=== PATIENT | male | born 1960 | race Caucasian/White ===

== ENCOUNTER → 2017-07-09 | Outpatient (CLI) | payer BC ==
--- NOTE | 2017-07-09 15:13 | XR ---
EXAM TYPE: LUMBAR SPINE X RAY SERIES COMPARISON: NONE HISTORY: Chronic pain TECHNIQUE: 4 views are submitted. FINDINGS: Alignment is anatomic. The pedicles are intact. The transverse processes are intact. There is no s pondylolysis or spondylolisthesis. There is a calcification the left abdomen measuring 2.5 mm. There is multilevel hypertrophic change and degenerative disc disease with most marked findings at L5-S1. No spondylolisthesis. Posterior spurring at L5-S1 likely results in foraminal encroachment and possib le canal stenosis. No alteration in position on flexion and extension views. IMPRESSION: 1. Multilevel degenerative disc disease with stable alignment on flexion and extension views. Severe changes L5-S1..
== END | disposition home or self-care (01) ==
LOC: RADCTMAIN 14:35
PROVIDERS: ATTEND Anesthesiology
DX: M51.16 Intervertebral disc disorders with radiculopathy, lumbar region (principal)
CPT/HCPCS: 72114

== ENCOUNTER → 2017-11-26 | Outpatient (CLI) | payer BC ==
--- NOTE | 2017-11-26 20:38 | MR ---
EXAMINATION TYPE: MR cervical spine wo con DATE OF EXAM: 11/26/2017 COMPARISON: 01/19/2015 HISTORY: Neck pain TECHNIQUE: Multiplanar, multisequence images of the cervical spine were acquired. C2-C3: There is degenerative disc disease with uncovertebral joint hypertrophy greater on the right r esulting in moderate right foraminal encroachment. Facet arthropathy contributes. No disc herniation or canal stenosis. Finding is mildly progressed from prior exam. C3-C4: Degenerative disc disease with central disc bulging or small protrusion appears stable. There is a right lateral disc bulge with [id number] right-sided foraminal encroachment. Facet arthrop athy noted. C4-C5: Degenerative disc disease with a focal central disc herniation abutting the anterior margin of the spinal cord. Stable from the prior exam. Facet arthropathy and bilateral uncovertebral joint hyp ertrophy noted. This results in significant effacement of thecal sac. [id number] right-sided fo raminal encroachment. C5-C6: Degenerative disc disease with retrolisthesis of C5 relative to C6. There is a broad-based paula tral disc herniation greater paracentrally the right resulting in cord compression which is mildly pr ogressed from the previous exam. Uncovertebral joint hypertrophy and facet arthropathy contribute to severe bilateral foraminal encroachment. C6-C7: Severe degenerative disc disease with broad-based central disc protrusion resulting in mild an terior indentation and compression of the spinal cord. Protrusion greater paracentrally the right. Fa cet arthropathy and uncovertebral joint hypertrophy contribute to severe left-sided foraminal encroac hment and moderate to severe right-sided foraminal encroachment. There is central canal stenosis. C7-T1: Degenerative disc disease with facet arthropathy. No disc herniation or canal stenosis. Mild b ilateral foraminal encroachment. Mild central disc bulging noted. Cervical segments are intact. Cervical spinal cord is of normal signal. Craniovertebral junction r elationships are within normal limits. IMPRESSION: 1. Multilevel moderate to severe degenerative disc disease with multilevel disc herniations. Large di sc herniation C5-C6 with retrolisthesis and hypertrophic changes result in severe spinal cord john franklyn and bilateral foraminal encroachment mildly progressed from the prior exam. 2. Central disc herniation C6-C7 and C4-C5 resulting in anterior encroachment upon the spinal cord an d bilateral foraminal encroachment with reduction of the central canal diameter 3. Multilevel foraminal encroachment as discussed above.
== END | disposition home or self-care (01) ==
LOC: RADMRIMAIN 19:37
PROVIDERS: ATTEND Neurological Surgery
DX: M50.221 Other cervical disc displacement at C4-C5 level (principal); M43.12 Spondylolisthesis, cervical region; G95.20 Unspecified cord compression; M46.82 Other specified inflammatory spondylopathies, cervical region
CPT/HCPCS: 72141

== ENCOUNTER → 2017-12-03 | Outpatient (CLI) | payer BC ==
--- NOTE | 2017-12-03 21:50 | MR ---
EXAMINATION TYPE: MR knee RT wo con DATE OF EXAM: 12/03/2017 COMPARISON: NONE HISTORY: Pain TECHNIQUE: Multiplanar, multisequence images of the knee is performed without IV contrast. FINDINGS: MEDIAL MENISCUS: Myxoid degeneration posterior horn medial meniscus. Anterior horn is intact. LATERAL MENISCUS: Anterior and posterior horns are intact without tear. CRUCIATE LIGAMENTS: The anterior and posterior cruciate ligaments are intact and unremarkable. COLLATERAL LIGAMENTS: The medial collateral ligament and lateral collateral ligament complex are inta ct and unremarkable. EXTENSOR MECHANISM: Visualized quadriceps and patellar tendons are intact. EFFUSION: No significant suprapatellar joint effusion. POPLITEAL CYST: No popliteal/beck cyst. TRICOMPARTMENT SPACES: Narrowing patellofemoral joint space with changes of chondromalacia patella. M ild narrowing medial tibiofemoral joint space. CARTILAGE: There is thinning of the patellar cartilage with changes of chondromalacia patella. BONE MARROW SIGNAL: No focal abnormal marrow signal is appreciated. OTHER: Intramedullary tibial katia is in place resulting in the artifact. IMPRESSION: 1. Changes of chondromalacia patella with cartilaginous thinning and subchondral cyst formation. 2. Myxoid degeneration posterior horn medial meniscus.
== END | disposition home or self-care (01) ==
LOC: RADMRIMAIN 19:32
PROVIDERS: ATTEND Orthopaedic Surgery
DX: M22.41 Chondromalacia patellae, right knee (principal); M85.661 Other cyst of bone, right lower leg; M23.321 Other meniscus derangements, posterior horn of medial meniscus, right knee

== ENCOUNTER → 2017-12-22 | Outpatient (CLI) | payer BC | LOC: LABPAT 10:46 | PROVIDERS: ATTEND Orthopaedic Surgery | DX: Z01.812 Encounter for preprocedural laboratory examination (principal) | CPT/HCPCS: 87070 ==

== ENCOUNTER → 2018-03-20 | Outpatient (CLI) | payer BC ==
[2018-03-20 13:50] LABS: Basophils % (A) 1 %; Eosinophils # (A) 0.5 k/uL (0-0.7); Eosinophils % (A) 6 %; HCT 40.5 % (39.0-53.0); HGB 13.3 gm/dL (13.0-17.5); Lymphocytes # (A) 1.6 k/uL (1.0-4.8); Lymphocytes % (A) 19 %; MCH 27.9 pg (25.0-35.0); MCHC 32.8 g/dL (31.0-37.0); Mean Platelet Volume 7.1; Monocytes # (A) 0.6 k/uL (0-1.0); Monocytes % (A) 8 %; Neutrophils # (A) 5.1 k/uL (1.3-7.7); Neutrophils % (A) 64 %; Platelet Count 256 k/uL (150-450); RBC 4.76 m/uL (4.30-5.90); WBC 8.1 k/uL (3.8-10.6)
[2018-03-20 14:03] LABS: Potassium 4.2 mmol/L (3.5-5.1)
== END | disposition home or self-care (01) ==
LOC: LABPAT 12:57
PROVIDERS: ATTEND Orthopaedic Surgery
DX: Z01.812 Encounter for preprocedural laboratory examination (principal); M23.91 Unspecified internal derangement of right knee
CPT/HCPCS: 36415; 80051; 85025

== ENCOUNTER 2018-04-01 08:18 | Day surgery (SDC) | payer BC ==
[2018-03-24 14:22] VITALS: BMI 27.3
--- NOTE | 2018-03-31 14:39 | HP ---
HISTORY AND PHYSICAL DATE OF SURGERY: 04/01/18 Tej Abrams is a 57-year-old patient seen with progressive right knee pain. Treatment options were discussed. He elected to proceed with right knee arthroscopy. Consent was obtained. PAST MEDICAL HISTORY: Hypothyroidism. PAST SURGICAL HISTORY: Left shoulder arthroscopy, left knee arthroscopy, cervical spine fusion. DAILY MEDICATIONS: 1. Ibuprofen. 2. Synthroid. ALLERGIES: BIAXIN. SOCIAL HISTORY: Patient denies tobacco use. PHYSICAL EXAMINATION: Evaluation right knee: Range of motion is negative 2 to 120 degrees. Mild effusion. Tenderness medial joint line, tenderness lateral joint line. Positive medial Dion's. Positive lateral Dion's. Ligaments stable. Hip rotation without pain. Distal neurovascular exam intact. RADIOGRAPHS: Radiographs of the right knee revealed mild to moderate osteoarthritis, evidence for previous tibial nail. An MRI of the right knee revealed abnormal signal throughout the medial meniscus. IMPRESSION: 1. Internal derangement, right knee with meniscal tear versus osteochondral tear. 2. Hypothyroidism. PLAN: Right knee arthroscopy with partial meniscectomy and debridement. MMODL / IJN: [id number] /
[~2018-04-01 08:18] MED LIST: DEXAMETHASONE SOD PHOSPHATE 10 MG/ML 1 ML VIAL IV ONE; LIDOCAINE 1% 20 ML VIAL (10MG/ML) FOR IV START INTRADERMA PRN; MIDAZOLAM 2 MG/2 ML VIAL IV PRN; ONDANSETRON 4 MG/2 ML VIAL IVP ONE; ceFAZolin IN SWFI 2 GM/20 ML SYRINGE IVP ONE; fentaNYL (PF) 50 MCG/ML 2 ML AMP IV PRN
[2018-04-01] MEDS: LACTATED RINGERS 1,000 ML IV SCH ×2 (09:22→09:59)
[2018-04-01] MEDS ORDERED: MIDAZOLAM 2 MG/2 ML VIAL ONE (10:03)
[2018-04-01] MEDS ORDERED: LIDOCAINE 1% INJ 10MG/ML (20 ML MDV) ONE (10:03)
[2018-04-01] MEDS ORDERED: PROPOFOL 10 MG/ML 20 ML VIAL IV ONE (10:03)
[2018-04-01] MEDS ORDERED: ROPIVACAINE 5 MG/ML 30 ML VIAL MISCELLANE ONE (10:03)
[2018-04-01] MEDS ORDERED: SUCCINYLCHOLINE CHLORIDE 100 MG/5 ML SYR IV ONE (10:03)
[2018-04-01] MEDS ORDERED: ePHEDrine SULFATE/0.9% NACL/PF 50 MG/5 ML SYRINGE IV ONE (10:03)
[2018-04-01] MEDS ORDERED: fentaNYL (PF) 50 MCG/ML 2 ML AMP ONE (10:03)
[2018-04-01 11:02] VITALS: TEMP 97.6
--- NOTE | 2018-04-01 11:03 | P.OP ---
Date of Procedure: 04/01/18 Preoperative Diagnosis: Internal derangement right knee Postoperative Diagnosis: 1. Tear medial and lateral meniscus right knee 2. Grade 4 chondromalacia medial femoral condyle right knee 3. Grade 2 chondromalacia patella right knee 4. Reactive synovitis medial, lateral and suprapatellar compartments right knee Procedure(s) Performed: 1. Arthroscopic partial medial and lateral meniscectomy right knee 2. Arthroscopic microfracture medial femoral condyle right knee 3. Arthroscopic chondroplasty medial femoral condyle and patella right knee 4. Arthroscopic partial synovectomy medial, lateral and suprapatellar compartments right knee Anesthesia: JOSE MIGUELA, local Surgeon: Nolan Martinez Estimated Blood Loss (ml): 5 Pathology: none sent Condition: stable Disposition: PACU Indications for Procedure: 57-year-old patient seen with progressive right knee pain. After treatment treatment options discussed, he elected to proceed with arthroscopy. Operative Findings: see description of procedure Description of Procedure: Patient was taken to the operative suite. Patient underwent a general anesthetic by the department of anesthesia. Patient was given preoperative antibiotics. The right lower extremity was placed in a well-padded arthroscopic leg anton. The right leg was prepped and draped in the normal sterile orthopedic fashion. A lateral parapatellar and suprapatellar incision was made. Trochars were inserted. Arthroscopy was initiated. Suprapatellar pouch revealed diffuse thick reactive synovitis. The patellofemoral joint appeared to articulate congruently. There was grade 2 chondromalacia patella with some osteochondral tears present. The scope was guided into the medial gutter. No loose bodies or plica were identified. The scope was then guided into the medial compartment. A medial parapatellar incision was made. Trocar inserted followed by probe. There was a complex tear posterior horn medial meniscus. There was an area of grade 3/4 chondromalacia medial femoral condyle weightbearing surface with osteochondral tears. There was thick reactive synovitis anteriorly. I performed a partial medial meniscectomy down to stable tissue. I performed a chondroplasty of the medial femoral condyle down to stable tissue. I performed a partial synovectomy decompressing the thick reactive size anteriorly. I did note an area of exposed bone medial femoral condyle weightbearing surface. I performed a microfracture penetrating the bone in the area of exposed bone. Good bleeding was noted at the microfracture site. The residual meniscus was stable. There was good decompression of the reactive synovitis. Scope and probe were then guided into the intercondylar notch. Cruciates were identified, probed and found to be stable. The scope and probe were then guided into lateral compartment. There was a complex tear involving the anterior and midbody areas of the lateral meniscus with essentially a bucket-handle component. There were grade 2 chondral malacia changes of lateral femoral condyle with osteochondral tears. There was fairly thick reactive synovitis along the anterior aspect of the lateral compartment. I performed a partial lateral meniscectomy gained down to stable tissue. I performed a partial synovectomy decompressing the thick reactive synovitis along the anterior aspect of lateral compartment. I essentially performed a complete anterior midbody horn meniscectomy laterally. The residual posterior horn was stable. There was good stability about the residual osteochondral surface and good decompression of the synovitis anteriorly. The scope was in guided back into the suprapatellar compartment. I introduced the motorized shaver into the suprapatellar compartment. I debrided some piecemeal fragments of meniscus I encountered. I performed a chondroplasty of the patella down to stable tissue. I performed a partial synovectomy decompressing the thick reactive synovitis and super patellar compartment. Shaver was removed. The residual osteochondral surface was stable. There was good decompression of the synovitis.Instruments were now removed from the joint. The joint was infiltrated with .25% Marcaine. Steri-Strips were applied to the portal sites. Sterile dressings were applied. The patient was placed into a MIKE hose. No tourniquet was utilized. The patient was awakened, transferred to a bed and taken to recovery stable satisfactory condition.
[2018-04-01] MEDS ORDERED: LACTATED RINGERS 1,000 ML IV ONE ×2 (11:10)
[2018-04-01 11:14] VITALS: RESP 16
[2018-04-01] MEDS: HYDROmorphone 0.5 MG/0.5 ML SYRINGE IVP PRN ×3 (11:16→12:07)
[2018-04-01] MEDS ORDERED: KETOROLAC 30 MG/ML 1 ML VIAL IVP ONE (11:43)
[2018-04-01 13:00] VITALS: BP 115/77; PULSE 74
== END 2018-04-01 13:25 | disposition home or self-care (01) ==
LOC: OR 08:18
PROVIDERS: ATTEND Orthopaedic Surgery
DX: S83.231A Complex tear of medial meniscus, current injury, right knee, initial encounter (principal); S83.271A Complex tear of lateral meniscus, current injury, right knee, initial encounter; S83.251A Bucket-handle tear of lateral meniscus, current injury, right knee, initial encounter; X58.XXXA Exposure to other specified factors, initial encounter; M94.261 Chondromalacia, right knee; M22.41 Chondromalacia patellae, right knee; M65.861 Other synovitis and tenosynovitis, right lower leg; E03.9 Hypothyroidism, unspecified; Z79.1 Long term (current) use of non-steroidal anti-inflammatories (NSAID); Z79.890 Hormone replacement therapy; Z88.1 Allergy status to other antibiotic agents
CPT/HCPCS: 29880; 29879; J2250; J1100; J2405; J2001; J3010; J1885; J2795; J0330; J2704; J1170; J0690

== ENCOUNTER → 2018-05-27 | Outpatient (CLI) | payer BC ==
--- NOTE | 2018-05-28 17:30 | MR ---
EXAMINATION TYPE: MR knee RT wo con DATE OF EXAM: 05/27/2018 COMPARISON: Prior right knee MRI 12/03/2017 HISTORY: Pain in right knee TECHNIQUE: Multiplanar, multisequence imaging of the right knee is performed without IV contrast. FINDINGS: MEDIAL MENISCUS: Abnormal increased signal present within the posterior horn of the medial meniscus, the meniscus appears somewhat truncated, abnormal signal is diffuse, communication with the articular surface is not seen with certainty. LATERAL MENISCUS: Anterior horn of the lateral meniscus is not seen. Posterior horn of the lateral me niscus shows possible meniscal cyst posteriorly, findings could be indicative of tear, anterior horn may be displaced laterally CRUCIATE LIGAMENTS: The anterior and posterior cruciate ligaments are intact and unremarkable. COLLATERAL LIGAMENTS: The medial collateral ligament and lateral collateral ligament complex are inta ct and unremarkable. EXTENSOR MECHANISM: Visualized quadriceps and patellar tendons are intact. EFFUSION: No significant suprapatellar joint effusion. POPLITEAL CYST: No popliteal/beck cyst. TRICOMPARTMENT SPACES: Joint space loss is present tricompartmentally CARTILAGE: Grade IV chondromalacia posterior patella. Grade 3 to grade IV chondromalacia medial deyanira rtment and likely lateral compartment BONE MARROW SIGNAL: Reactive marrow signal edema present within the lateral compartment especially at the lateral femoral condyle. OTHER: Susceptibility artifact present at the level of the proximal tibia anteriorly. IMPRESSION: Postoperative changes and osteoarthritis. Extensive reactive marrow signal change especially in the l ateral femoral condyle. Additional findings above.
== END | disposition home or self-care (01) ==
LOC: RADMRIMAIN 15:01
PROVIDERS: ATTEND Orthopaedic Surgery
DX: M17.12 Unilateral primary osteoarthritis, left knee (principal); M22.41 Chondromalacia patellae, right knee; Z98.890 Other specified postprocedural states

== ENCOUNTER → 2018-07-03 | Outpatient (CLI) | payer BC ==
--- NOTE | 2018-07-03 17:50 | XR ---
EXAMINATION TYPE: XR lumbar spine with bend/flex DATE OF EXAM: 07/03/2018 COMPARISON: 07/09/2017 HISTORY: Low back pain TECHNIQUE: 7 views FINDINGS: The lumbar vertebra have normal alignment. There is hypertrophic spur formation throughout the lumbar spine. There is narrowing at L5-S1 disc space with vacuum disc. Sacroiliac joints are inta ct. There is no evidence for fracture. IMPRESSION: Multilevel spondylotic changes. No fracture seen. Left renal calculus noted. No change co mpared to old exam.
== END | disposition home or self-care (01) ==
LOC: RADMRIMAIN 16:27
PROVIDERS: ATTEND Neurological Surgery
DX: M47.816 Spondylosis without myelopathy or radiculopathy, lumbar region (principal)
CPT/HCPCS: 72114

== ENCOUNTER → 2018-07-20 | Outpatient (CLI) | payer BC ==
--- NOTE | 2018-07-21 07:55 | MR ---
EXAMINATION TYPE: MR lumbar spine wo con DATE OF EXAM: 07/20/2018 COMPARISON: Prior MRI lumbar spine July 28, 2017. Most recent lumbar spine x-ray July 03, 2018 HISTORY: Spinal stenosis lumbar region with neurogenic claudication per order. Back pain and weakness into bilateral legs per patient. History of prior surgery 1991. TECHNIQUE: Multiplanar, multisequence imaging of the lumbar spine is performed without IV contrast. FINDINGS: I will use same counting system as utilized on most recent prior MRI. Sagittal images of th e lumbar spine show vertebral body heights to remain satisfactory. There is slight grade 1 retrolisth esis of L3 on L4 and L4 and S1 redemonstrated felt stable. Multilevel disc desiccation is redemonstra randolph. There is mild disc space narrowing L2-L3 level redemonstrated. There is mild to moderate disc sp river narrowing L3-L4 level redemonstrated. Fairly advanced disc space narrowing with heterogeneous Mod ic type II endplate changes L4-S1 level is again seen. Posterior disc herniations at these levels are redemonstrated on sagittal images. The conus medullaris is normal in position and signal ending mid L1 level. Mild to moderate multilevel anterior spurring is again seen. Axial images at the T12-L1 level redemonstrate mild facet degenerative changes bilaterally but spinal canal is preserved and bilateral neural foramina are patent. Axial images at the L1-L2 level shows mild facet degenerative changes bilaterally mildly effacing pos terior lateral thecal sac. There is mild broad disc bulge minimally effacing the anterior thecal sac. Bilateral neural foramina are patent. No significant change from prior. Axial images at the L2-L3 level show moderate facet degenerative changes and ligament flavum hypertro phy effacing posterior lateral thecal sac. There is moderate to severe broad based posterior disc pro trusion effacing anterior thecal sac. Most prominent spinal canal stenosis is at this level axial sam ge 18 and appears slightly more prominent from prior MRI. There is moderate bilateral anterior inferi or neural foraminal narrowing. Some encroachment along the anterior inferior extraforaminal component of exiting both L2 nerves is felt present similar to prior. Axial images at the L3-L4 level shows mild to moderate facet degenerative changes bilaterally. There is moderate broad disc bulge mildly effacing anterior thecal sac. There is mild to moderate bilateral neural foraminal narrowing seen. Axial images at the L4 S1 level show left-sided laminectomy defect redemonstrated. There is mild to m oderate facet degenerative changes bilaterally. There is right paracentral disc protrusion effacing a nterior thecal sac. There is mild to moderate bilateral neural foraminal narrowing redemonstrated. No suspicious incidental retroperitoneal findings are seen. IMPRESSION: Multilevel degenerative changes in lumbar spine as detailed above with most prominent fin dings mid to lower lumbar levels. Most prominent spinal canal stenosis is noted L2-L3 level.
== END ==
LOC: RADMRIMAIN 21:19
PROVIDERS: ATTEND Neurological Surgery
DX: M48.061 Spinal stenosis, lumbar region without neurogenic claudication (principal); M99.74 Connective tissue and disc stenosis of intervertebral foramina of sacral region; M51.27 Other intervertebral disc displacement, lumbosacral region; M47.817 Spondylosis without myelopathy or radiculopathy, lumbosacral region
CPT/HCPCS: 72148

== ENCOUNTER → 2018-09-15 | Outpatient (CLI) | payer BC | LOC: LABPAT 15:53 | PROVIDERS: ATTEND Orthopaedic Surgery | DX: Z01.812 Encounter for preprocedural laboratory examination (principal) | CPT/HCPCS: 87070 ==

== ENCOUNTER 2018-10-05 08:25 | Day surgery (SDC) | payer BC ==
[2018-09-30 14:37] VITALS: BMI 27.6
--- NOTE | 2018-10-04 14:18 | HP ---
HISTORY AND PHYSICAL REASON FOR ADMISSION: Surgery scheduled for 10/05/2018 HISTORY OF PRESENT ILLNESS: John Abrams is a 58-year-old patient seen with symptomatic left knee osteoarthritis. We discussed treatment options. He elected to proceed with left total knee arthroplasty. Consent was obtained. Clearance was provided by Dr. Valdez. PAST MEDICAL HISTORY: Hypothyroidism. PAST SURGICAL HISTORY: Left shoulder arthroscopy, left knee arthroscopy, intramedullary nailing, right tibia; removal, irritating hardware, right tibia; cervical fusion. MEDICATIONS: Synthroid. ALLERGIES: BIAXIN. SOCIAL HISTORY: Denies tobacco use. PHYSICAL EXAMINATION: Evaluation of the left knee is range of motion is 0 to 130 degrees. Tenderness medial joint line. Crepitus medial patellofemoral compartments range of motion. Pain with patellofemoral compression. Ligaments stable. Hip rotation without pain. Distal neurovascular exam intact. RADIOGRAPHS: Radiographs of the left knee reveal severe medial and moderate patellofemoral compartment osteoarthritis. IMPRESSION: 1. Left knee osteoarthritis. 2. Hypothyroidism. PLAN: Left total knee arthroplasty. Surgery scheduled for 10/05/2018. MMODL / IJN: [id number] /
[~2018-10-05 08:25] MED LIST changes: +ACETAMINOPHEN TAB 500 MG TAB PO ONE; -DEXAMETHASONE SOD PHOSPHATE 10 MG/ML 1 ML VIAL IV ONE; +HYDROmorphone 0.5 MG/0.5 ML SYRINGE IVP PRN; +LACTATED RINGERS 1,000 ML IV SCH; +MELOXICAM 7.5 MG TAB PO ONE; -MIDAZOLAM 2 MG/2 ML VIAL IV PRN; +TRANEXAMIC ACID 1,000 MG in SODIUM CHLORIDE 0.9% 100 ML IVPB ONE; -fentaNYL (PF) 50 MCG/ML 2 ML AMP IV PRN
[2018-10-05] MEDS ORDERED: DEXAMETHASONE SOD PHOSPHATE 10 MG/ML 1 ML VIAL IV ONE (09:24)
[2018-10-05] MEDS ORDERED: MIDAZOLAM 2 MG/2 ML VIAL IVP ONE (09:35)
[2018-10-05] MEDS ORDERED: ROPIVACAINE 246.25 MG, EPINEPHrine 0.5 MG, KETOROLAC 30 MG, cloNIDine HCL/PF 80 MCG, WA... MISCELLANE ONE ×10 (09:56→10:31)
[2018-10-05] MEDS ORDERED: SUCCINYLCHOLINE CHLORIDE 100 MG/5 ML SYR IV ONE (09:59)
[2018-10-05] MEDS ORDERED: MIDAZOLAM 2 MG/2 ML VIAL ONE (09:59)
[2018-10-05] MEDS ORDERED: fentaNYL (PF) 50 MCG/ML 2 ML AMP ONE (09:59)
[2018-10-05] MEDS ORDERED: DEXAMETHASONE SOD PHOS (MDV) 100 MG/10 ML VIAL ONE (09:59)
[2018-10-05] MEDS ORDERED: PHENYLEPHRINE-0.9% NACL SYG 1 MG/10 ML SYRINGE ONE (09:59)
[2018-10-05] MEDS ORDERED: PROPOFOL 10 MG/ML 20 ML VIAL IV ONE (09:59)
[2018-10-05] MEDS ORDERED: TRANEXAMIC ACID 1,000 MG/10 ML VIAL ONE (09:59)
[2018-10-05] MEDS ORDERED: SODIUM CHLORIDE 0.9% 100 ML BAG ONE (09:59)
[2018-10-05] MEDS ORDERED: LIDOCAINE 1% INJ 10MG/ML (20 ML MDV) ONE (09:59)
[2018-10-05] MEDS ORDERED: ceFAZolin 3,000 MG in SODIUM CHLORIDE 0.9% IRRIGATIO 3,000 ML IRRIGATION ONE (10:36)
[2018-10-05] MEDS ORDERED: ROPIVACAINE 1,100 MG, SODIUM CHLORIDE 0.9% 500 ML 330 ML MISCELLANE PRN ×2 (11:46)
[2018-10-05] MEDS ORDERED: ONDANSETRON 4 MG/2 ML VIAL IVP PRN (12:00)
[2018-10-05] MEDS ORDERED: HYDROmorphone 0.5 MG/0.5 ML SYRINGE IVP PRN ×2 (12:00)
[2018-10-05] MEDS ORDERED: HYDROcodone/APAP 5-325MG 1 EACH TAB PO PRN ×2 (12:00)
[2018-10-05] MEDS ORDERED: LACTATED RINGERS 1,000 ML IV SCH (12:00)
[2018-10-05] MEDS ORDERED: HYDROmorphone 1 MG/ML 1 ML SYRINGE IVP PRN (12:00)
[2018-10-05] MEDS ORDERED: NALOXONE 0.4 MG/ML 1 ML VIAL IV PRN (12:00)
--- NOTE | 2018-10-05 12:00 | P.OP ---
Date of Procedure: 10/05/18 Preoperative Diagnosis: Left knee osteoarthritis Postoperative Diagnosis: Left knee osteoarthritis Procedure(s) Performed: Left total knee arthroplasty Implants: 1. Microport evolution size 6 left CS/CR cemented femur 2. Microport evolution size 6 left cemented tibial baseplate 3. Microport evolution MP CS size 6 left 10 mm polyethylene tibial insert 4. Microport advance 38 mm all polyethylene cemented patella Anesthesia: GETA, regional (Adductor canal catheter), local Surgeon: Nolan Martinez Spinner Hand #1: Ezra Forrester Estimated Blood Loss (ml): 50 Pathology: other (Bone) Condition: stable Disposition: PACU Indications for Procedure: 58-year-old patient seen with symptomatic left knee osteoarthritis. After treatment options discussed, he elected to proceed with total knee arthroplasty Operative Findings: See description of procedure Description of Procedure: Patient was taken to the operative suite after having an adductor canal catheter placed by the department of anesthesia. Patient underwent a general anesthetic by the department of anesthesia. Patient was given preoperative IV intake antibiotics and TXA. A well-padded tourniquet was placed about the left lower extremity. The lower extremity was then prepped and draped in the normal sterile orthopedic fashion. The extremity was elevated, a tourniquet was insufflated to 300. A standard anterior incision was made sharply through skin. Dissection was taken down through the subcutaneous soft tissues down to the extensor mechanism. A medial arthrotomy was performed, patella was everted and knee was flexed. There was advanced osteoarthritis noted. I introduced my distal intramedullary femoral drill. I then introduced the distal femoral cutting jig. Pascual VALDEZ secured the cutting jig with 2 pins. I held retractors in position while Pascual VALDEZ performed the distal femoral resection through the guide area we now removed her distal femoral cutting guide. We now placed our 4-in-1 femoral cutting block and positioned and it was secured with 2 pins by Pascual VALDEZ while I held the block in position. The distal femoral finishing was now completed. A proximal tibial cutting guide was positioned. I held the guide in the appropriate position with both hands well Pascual VALDEZ inserted stabilizing pins into the guide. Proximal tibial cut was made. We now placed a trial femoral component into position, along with an appropriate size tibial tray and insert. We now took the knee through range of motion and had full extension good flexion and good overall soft tissue balance noted. The patella was everted and stabilized with 2 towel clips held by Pascual VALDEZ while I performed a flush with patellar quad tendon utilizing a fresh sawblade. We templated the patella, appropriate drill holes were made. An appropriate trial patella was positioned, knee was taken through full range of motion with the patella tracking very nicely. The trial patella was removed. Drill holes were made through the femoral component. All trial components were removed after marking off the appropriate rotation of the tibia. Retractors were now positioned along the proximal tibia. An appropriate keel punch was made with the appropriate size tibial guide by myself on Pascual VALDEZ assisted by holding retractors. At this point appropriate size implants were chosen and opened. The joint was irrigated copiously with pulse lavage mechanical irrigation. The posterior capsule was infiltrated with local analgesic. The wound was irrigated with pulse lavage mechanical irrigation. We mixed antibiotic methylmethacrylate. We placed the knee into flexion. We placed multiple retractors assisted by Pascual VALDEZ to expose the proximal tibia. Once the methyl methacrylate was ready, the tibial component was cemented into place removing any excess methylmethacrylate form by both myself and Pascual VALDEZ. The femoral component was cemented into place removing the removing any excess methylmethacrylate performed by both myself and Pascual VALDEZ. We then inserted the appropriate size polyethylene tibial insert. We made sure that it was locked into position. We took the knee into full extension, and then back in a flexion making sure we had removed any excess methylmethacrylate. The patellar component was then cemented down and secured with clamp. Excess methylmethacrylate removed. We kept the knee in full extension, patellar clamp in position until methylmethacrylate had hardened. Once it had hardened the patellar clamp was removed. The knee was taken through full range of motion. The patella tracked nicely. There was good soft tissue balancing. The tourniquet was now released. Additional hemostasis was achieved via electrocautery. A second gram of TXA was given. The wound again was irrigated with pulse lavage mechanical irrigation. The superficial soft tissues were infiltrated local analgesic. The extensor mechanism was repaired with Vicryl. We checked the repair with range of motion and it was stable. The subcutaneous soft tissues were repaired with Vicryl in layers. The skin was approximated with pernio/Dermabond. Sterile dressings were applied followed by loose web roll and Mello bandage. The patient was transferred to a bed, and taken to recovery in stable and satisfactory condition. Pascual VALDEZ assisted with this complex procedure.
[2018-10-05 12:22] VITALS: TEMP 98.1
[2018-10-05] MEDS ORDERED: LACTATED RINGERS 1,000 ML IV ONE (13:05)
[2018-10-05] MEDS ORDERED: KETOROLAC 30 MG/ML 1 ML VIAL IVP ONE (13:06)
[2018-10-05] MEDS ORDERED: HYDROmorphone 1 MG/ML 1 ML SYRINGE IVP ONE (13:07)
--- NOTE | 2018-10-05 13:32 | XR ---
EXAMINATION TYPE: XR knee limited LT DATE OF EXAM: 10/05/2018 CLINICAL HISTORY: Postoperative evaluation Two views of the left knee are submitted. Identified are changes of total knee arthroplasty with fem oral and tibial components appearing well seated. Postsurgical soft tissue changes are noted. Align ment is anatomic.
[2018-10-05 14:14] VITALS: RESP 16
--- NOTE | 2018-10-05 15:25 | P.ONQ ---
Anesthesiology Proc Note - PNB - Peripheral Nerve Block Performed Left Adductor Canal Infusion Time Out Performed: Yes Procedure Start Time: 09:36 Procedure Stop Time: :46 Indication: Acute Post-Operative Pain, Requested by physician Sedation Type: Sedate with meaningful contact maintained Preparation: Sterile Dressing Position: Supine Catheter: Indwelling Needle Types: On-Q Needle Size: 100mm (4") Technique: Ultrasound Injectate: 0.5% Ropivacaine (see comment for volume) (ropi .5% 20cc) Blood Aspirated: No Pain Paresthesia on Injection Noted: No Resistance on Injection: Normal Events: Uneventful and Well Tolerated
[2018-10-05 15:37] VITALS: BP 128/87; PULSE 80
[2018-10-05] MEDS ORDERED: ceFAZolin IN SWFI 2 GM/20 ML SYRINGE IVP ONE (18:01)
== END 2018-10-05 16:31 | disposition home health service (06) ==
LOC: OR 08:25
PROVIDERS: ATTEND Orthopaedic Surgery
DX: M17.12 Unilateral primary osteoarthritis, left knee (principal); E03.9 Hypothyroidism, unspecified; Z79.890 Hormone replacement therapy; Z88.1 Allergy status to other antibiotic agents
CPT/HCPCS: 97161; 88300; 73560; 27447; C1776; C1713; C1772; J2250; J1100 ×2; J2405; J0690 ×2; J2001; J3010; J1885; J1170 ×2; J2795; J2370; J0330; J2704

== ENCOUNTER → 2019-10-06 | Outpatient (CLI) | payer BC ==
--- NOTE | 2019-10-06 21:30 | MR ---
EXAMINATION TYPE: MR lumbar spine wo con DATE OF EXAM: 10/06/2019 COMPARISON: 07/20/2018 HISTORY: LBP, lt leg numbness, hx surgery CONTRAST: 0 mL intravenous Gadavist. TECHNIQUE: Multiplanar, multisequence images of the lumbar spine were acquired. For purposes of this examination the numbering system utilized and L4 S1 level as previously describe d FINDINGS: L4 S1: There is minimal retrolisthesis present. Endplate changes with Modic type I degenerative morris es are present. Disc uncovering is present with mild anterior thecal sac compression. This is unchang ed. Facet hypertrophy is present. There may be some compression of the exiting left nerve root. Sever e bilateral foraminal stenosis is present. L3-L4: Minimal disc bulging is present. Facet hypertrophy is present slightly greater on the left. Fo ramen are patent. L2-L3: Left paracentral moderate-sized disc bulge is present with mild to moderate intrathecal sac co mpression. Slightly more inferior some milder right paracentral subligamentous disc extension may be present. Significant AP spinal canal stenosis is not present. There is some facet hypertrophy with po sterior lateral thecal sac compression. Some mild lateral canal narrowing may be present. The degree of spinal canal stenosis present previously appears diminished over the interval. L1-L2: No significant disc bulge or disc herniation. No spinal canal stenosis. No foraminal stenosi s. T12-L1: No significant disc bulge or disc herniation. No spinal canal stenosis. No foraminal stenos is. IMPRESSION: 1. Previous spinal canal stenosis at the level labeled L3-4 appears diminished. Remaining findings ar e stable over the interval from 07/20/2018.
== END | disposition home or self-care (01) ==
LOC: RADMRIMAIN 20:25
PROVIDERS: ATTEND Orthopaedic Surgery
DX: M48.061 Spinal stenosis, lumbar region without neurogenic claudication (principal); M51.26 Other intervertebral disc displacement, lumbar region; M47.816 Spondylosis without myelopathy or radiculopathy, lumbar region; M43.16 Spondylolisthesis, lumbar region; G89.29 Other chronic pain; M96.1 Postlaminectomy syndrome, not elsewhere classified
CPT/HCPCS: 72148

== ENCOUNTER → 2020-07-12 | Outpatient (CLI) | payer MEDICARE, BC ==
--- NOTE | 2020-07-12 22:23 | MR ---
EXAMINATION TYPE: MR shoulder LT wo con DATE OF EXAM: 07/12/2020 COMPARISON: MR 08/03/2012. Radiographs 05/19/2020. HISTORY: PAIN IN LEFT SHOULDER, SX 2012 TECHNIQUE: Multiplanar, multisequence imaging of the left shoulder is performed without contrast. FINDINGS: Rotator Cuff: Prior post surgical changes related to rotator cuff repair with suture anchors in the h umeral head present. There is moderate heterogeneity of the rotator cuff tendons. There is articular surface irregularity of the supraspinatus tendon may and anterior fibers, compatible with low to mode rate grade partial thickness tear. No evidence of full-thickness rotator cuff tear. Acromioclavicular Joint: Mild osteoarthritis Glenohumeral Joint: Moderate osteoarthritis with small joint effusion. Labrum: Moderate degeneration of the glenoid labrum. Biceps Tendon: The long head of biceps is in normal location within bicipital groove. Bone marrow signal: No focal abnormal marrow signal is appreciated. Other: Trace fluid is seen in the subacromial-subdeltoid bursa. IMPRESSION: Prior rotator cuff repair without evidence of full-thickness tear. Findings compatible with low to moderate grade articular surface partial thickness tear of the supras pinatus tendon. Mild subacromial-subdeltoid bursitis.
== END | disposition home or self-care (01) ==
LOC: RADMRIMAIN 20:51
PROVIDERS: ATTEND Orthopaedic Surgery
DX: M75.52 Bursitis of left shoulder (principal); Z98.890 Other specified postprocedural states

== ENCOUNTER → 2020-09-26 | Outpatient (CLI) | payer MEDICARE, BC ==
[2020-09-26 19:31] LABS: Basophils # (A) 0.07 X 10*3/uL (0.00-0.10); Basophils % (A) 0.8 %; Eosinophils % (A) 5.5 %; HCT 43.9 % (39.6-50.0); Lymphocytes # (A) 1.74 X 10*3/uL (0.90-5.00); Lymphocytes % (A) 19.2 %; MCH 28.9 pg (27.0-32.0); MCHC 31.9 g/dL (32.0-37.0); MCV 90.5 fL (80.0-97.0); Monocytes % (A) 9.9 %; Neutrophils # (A) 5.77 X 10*3/uL (1.80-7.70); Neutrophils % (A) 63.8 %; Platelet Count 226 X 10*3/uL (140-440); RBC 4.85 X 10*6/uL (4.40-5.60); RDW 13.2 % (11.5-14.5); WBC 9.05 X 10*3/uL (4.50-10.00)
[2020-09-26 19:46] LABS: Anion Gap 9.5 mmol/L (4.00-12.00); Carbon Dioxide 25.5 mmol/L (21.6-31.8); Potassium 4.4 mmol/L (3.5-5.5)
[2020-09-26 22:57] LABS: INR 0.88 (0.90-1.11); Prothrombin Time 9.7 sec (9.9-11.9)
== END | disposition home or self-care (01) ==
LOC: LABWHC1 14:00
PROVIDERS: ATTEND Orthopaedic Surgery
DX: Z01.818 Encounter for other preprocedural examination (principal); M16.12 Unilateral primary osteoarthritis, left hip; Z01.812 Encounter for preprocedural laboratory examination
CPT/HCPCS: 36415; 80051; 85025; 85610; 87070; 93005

== ENCOUNTER 2020-10-02 06:28 | Day surgery (SDC) | payer MEDICARE, BC ==
[2020-09-28 16:13] VITALS: BMI 27.4
--- NOTE | 2020-10-01 17:14 | HP ---
HISTORY AND PHYSICAL REASON FOR ADMISSION: Surgery scheduled 10/02/2020 HISTORY OF PRESENT ILLNESS: Tej Abrams is a 60-year-old gentleman seen with symptomatic left hip osteoarthritis. We discussed treatment options. He elected to proceed with direct anterior left total hip arthroplasty. Consent regarding the procedure was obtained. PAST MEDICAL HISTORY: Hypothyroidism. PAST SURGICAL HISTORY: Shoulder arthroscopy, knee arthroscopy, total knee arthroplasty. MEDICATIONS: Synthroid, ibuprofen. ALLERGIES: BIAXIN. SOCIAL HISTORY: Denies tobacco use. PHYSICAL EXAMINATION: Evaluation of the left hip: Range of motion is severely limited with severe pain. There is diffuse tenderness about the hip girdle. Hip impingement sign is negative. Straight leg raise is negative. His distal neurovascular exam is intact. RADIOGRAPHS: Radiographs of the hip reveal severe osteoarthritic changes. IMPRESSION: 1. Left hip osteoarthritis. 2. Hypothyroidism. PLAN: Direct anterior left total hip arthroplasty. Surgery 10/02/2020. MMODL / IJN: [id number] /
[~2020-10-02 06:28] MED LIST changes: -ACETAMINOPHEN TAB 500 MG TAB PO ONE; +ACETAMINOPHEN TAB 500 MG TAB PO PRN; +DEXAMETHASONE SOD PHOSPHATE 4 MG/ML 1 ML VIAL IV ONE; -LACTATED RINGERS 1,000 ML IV SCH; -LIDOCAINE 1% 20 ML VIAL (10MG/ML) FOR IV START INTRADERMA PRN; -MELOXICAM 7.5 MG TAB PO ONE; +MELOXICAM 7.5 MG TAB PO PRN; +ROPIVACAINE/EPI/CLONIDINE/KET 50 ML SYRINGE MISCELLANE PRN; -TRANEXAMIC ACID 1,000 MG in SODIUM CHLORIDE 0.9% 100 ML IVPB ONE; +TRANEXAMIC ACID 1,000 MG in SODIUM CHLORIDE 0.9% 100 ML IVPB PRN; -ceFAZolin IN SWFI 2 GM/20 ML SYRINGE IVP ONE
[2020-10-02 06:59] VITALS: RESP 16
[2020-10-02] MEDS: LACTATED RINGERS 1,000 ML IV SCH ×2 (07:12→12:11)
[2020-10-02] MEDS ORDERED: TRANEXAMIC ACID 1,000 MG/10 ML VIAL ONE (07:24)
[2020-10-02] MEDS ORDERED: SUCCINYLCHOLINE CHLORIDE 100 MG/5 ML SYR IV ONE (07:24)
[2020-10-02] MEDS ORDERED: LIDOCAINE 1% INJ 10MG/ML (20 ML MDV) ONE (07:24)
[2020-10-02] MEDS ORDERED: MIDAZOLAM 2 MG/2 ML VIAL ONE (07:24)
[2020-10-02] MEDS ORDERED: PROPOFOL 10 MG/ML 20 ML VIAL IV ONE (07:24)
[2020-10-02] MEDS ORDERED: SODIUM CHLORIDE 0.9% 100 ML BAG ONE (07:24)
[2020-10-02] MEDS ORDERED: KETAMINE 10 MG/ML 20 ML VIAL ONE (07:24)
[2020-10-02] MEDS ORDERED: fentaNYL (PF) 50 MCG/ML 2 ML AMP ONE (07:24)
[2020-10-02] MEDS ORDERED: ceFAZolin 1,000 MG in SODIUM CHLORIDE 0.9% 1,000 ML IRRIGATION ONE (08:07)
--- NOTE | 2020-10-02 09:10 | FL ---
Fluoroscopy History: TOTAL LEFT HIP TOTAL LEFT HIP. 17 SEC FLUORO TIME. WITH DR VILLAGRAN.
[2020-10-02] MEDS ORDERED: HYDROmorphone 0.2 MG/1 ML SYRINGE IVP PRN (09:23)
[2020-10-02] MEDS ORDERED: HYDROcodone/APAP 7.5-325MG 1 EACH TAB PO PRN (09:23)
[2020-10-02] MEDS ORDERED: HYDROmorphone 1 MG/ML 1 ML SYRINGE IVP PRN (09:23)
[2020-10-02] MEDS ORDERED: HYDROcodone/APAP 5-325MG 1 EACH TAB PO PRN (09:23)
[2020-10-02] MEDS ORDERED: NALOXONE 0.4 MG/ML 1 ML VIAL IV PRN (09:23)
[2020-10-02] MEDS ORDERED: ONDANSETRON 4 MG/2 ML VIAL IVP PRN (09:23)
[2020-10-02] MEDS ORDERED: HYDROmorphone 0.5 MG/0.5 ML SYRINGE IVP PRN (09:23)
--- NOTE | 2020-10-02 09:23 | P.OP ---
Date of Procedure: 10/02/20 Preoperative Diagnosis: Left hip osteoarthritis Postoperative Diagnosis: Left hip osteoarthritis Procedure(s) Performed: Direct anterior left total hip arthroplasty Implants: 1. Depuy Corail KA standard collar size 12 press-fit femoral stem 2. Depuy pinnacle 58 mm press-fit acetabular shell 3. Depuy pinnacle polyethylene acetabular liner neutral 36 mm ID 58 mm OD 4. Biolox delta ceramic femoral head +1.5 36 mm Anesthesia: JOSE MIGUELA, local Surgeon: Nolan Martinez Material Planner #1: Ezra Forrester Estimated Blood Loss (ml): 125 Pathology: other (femoral head) Condition: stable Disposition: PACU Indications for Procedure: 60-year-old gentleman seen with progressive left hip pain. After treatment options were discussed with him, he elected to proceed with total hip arthroplasty. Operative Findings: see description of procedure Description of Procedure: The patient was taken to the operative suite. Patient underwent a general anesthetic by the department of anesthesia. Patient was then transferred to the Girdler table. Patient was given preoperative IV antibiotics and TXA. Both lower extremities were placed in standard leg spars. The hip was then prepped and draped in the normal sterile orthopedic fashion. A standard anterior incision was made beginning 3 cm lateral and 1 cm distal to the ASIS extending 10 cm. Dissection was then carried down through the subcutaneous soft tissues down to the fascia overlying the tensor fascia louie. An incision was now made through the fascia. Careful dissection was taken down exposing the tensor fascia louie muscle. A Cobra retractor was now placed along the medial femoral neck and a second one along the lateral femoral neck. The venous circumflex vessels were now identified, cauterized and clipped. We identified the anterior hip capsule. An incision was made through the hip capsule along the lateral border. I performed a partial anterior capsulectomy. Retractors were now placed around the femoral neck itself. A femoral neck cut was now made with a sagittal saw. It was completed with an osteotome at the lateral neck area. The femoral head was now removed without difficulty. The extremity was now rotated to 45 of external rotation. It was locked in position. Residual labrum was now debrided out. Serial reaming was performed of the acetabulum while Pascual VALDEZ assisted holding an anterior retractor for exposure. Once we reached the appropriate size and a trial was position and fit nicely. The appropriate size was now chosen opened and made available. It was introduced into the acetabulum without difficulty. The C-arm/fluoroscopy was now brought into the operative field. We made sure we had a true AP pelvic view. We now under direct C- arm/fluoroscopy introduced into the acetabular component with appropriate version and inclination. I held the cup in appropriate position well Pascual VALDEZ used a mallet to seat the acetabular component. I noted the component now to be well seated and stable. Acetabular cup introduce her was removed. The C-arm was pulled back. An appropriate liner was introduced and clicked into position. It was felt to be stable. At this point retractors were removed. The extremity was now placed into 120 external rotation with no traction. The leg was now dropped to the ground and adducted. Appropriate retractors were now positioned along the proximal femur. We also placed our femoral look into position. Additional capsular releasing was performed to gain access to the proximal femur. We now used a box osteotome. A canal finder was now utilized. Serial broaching was now performed with the assistance of Pascual VALDEZ tapping the broaches down with a mallet while held the broach in appropriate rotation and position. This was done until we reached the appropriate size with good overall rotational stability. Appropriate calcar planing was performed. A trial head/neck was placed into position. The hip was now reduced. The C- arm/fluoroscopy was brought back into the operative field. We obtained an AP pelvis ascertain leg length alignment, it appeared adequate as well as the trial components appeared adequate position. The C-arm/fluoroscopy was pulled back. Retractors were repositioned and the hip was dislocated. The leg was again taken down to the ground and adducted. Appropriate retractors were repositioned as well as the femoral hook. All trial components were removed. The femoral implant was opened along with the femoral head. The femoral implant was introduced on the appropriate handle into our pre-broached area. I held the component position well Pascual VALDEZ used a mallet to seat the femoral component. The femoral component was now noted to be well seated and stable.. The femoral head was introduced with good positioning and fixation noted. Retractors were now removed. The hip was now reduced. There appeared be good positioning of the hip confirmed on intraoperative fluoroscopy. Spot films were obtained to document this. A second gram of TXA was given. The deep and superficial soft tissues were infiltrated with local analgesic. Bipolar cautery had been utilized intermittently through the procedure for hemostasis. The wound was irrigated copiously with pulse lavage mechanical irrigation. The fascia was repaired with Vicryl suture. The subcutaneous soft tissues were repaired in layers with Vicryl suture. The skin was approximated with pernio/Dermabond. Sterile dressings were applied. Patient was then awakened, transferred to a bed and taken to recovery in stable condition. Pascual VALDEZ assisted with the complex procedure.
[2020-10-02 09:30] VITALS: TEMP 97.8
[2020-10-02] MEDS: LACTATED RINGERS 1,000 ML IV ONE ×2 (09:59→10:12)
[2020-10-02 12:18] VITALS: BP 112/70
[2020-10-02 12:49] VITALS: PULSE 78
== END 2020-10-02 14:14 | disposition home health service (06) ==
LOC: OR 06:28
PROVIDERS: ATTEND Orthopaedic Surgery
DX: M16.12 Unilateral primary osteoarthritis, left hip (principal); E03.9 Hypothyroidism, unspecified; Z96.652 Presence of left artificial knee joint; Z90.49 Acquired absence of other specified parts of digestive tract; Z98.890 Other specified postprocedural states; Z79.1 Long term (current) use of non-steroidal anti-inflammatories (NSAID); Z79.890 Hormone replacement therapy; Z88.1 Allergy status to other antibiotic agents
CPT/HCPCS: 97110; 97161; 86900; 86901; 86850; 88300; 87070; 87205; 87075; 87102; 73501; 27130; C1776; J2250; J1100; J0690 ×2; J2405; J2001; J3010; J0330; J2704; 87116; 87206

== ENCOUNTER 2021-08-29 07:05 | Day surgery (SDC) | payer MEDICARE, BC ==
[2021-08-23 13:20] VITALS: BMI 27.6
--- NOTE | 2021-08-27 15:09 | P.HPOR ---
History of Present Illness H&P Date: 08/27/21 Chief Complaint: Right thumb CMC arthritis Age: 60 year Height: 5'11" Weight: 195 lbs BMI: 27.20 kg/m2 Subjective: This is a 60 year old male that presents today for follow up evaluation regarding right thumb CMC arthritic pain that been worsening for the last 1 year. Patient reports pain with gripping, grasping and pinching type of movements. He had an injection 2 months ago into the thumb CMC joint and noticed significant relief of his symptoms. He has noticed over the last several weeks that the injection has worn off. It is continuously bothering him and interfering with daily activities. Physical Examination: RUE: AIN/PIN/Radial/Ulnar/Median motor intact. Radial/Ulnar/Median SILT. 2+/4 Radial/Ulnar pulses palpated. Positive thumb CMC grind. Negative Finkelsteins. Wrist F/U 80/65. Dorsal metacarpal bossing and index/middle finger CMC joints. Negative finger extension test. Imaging: X-Rays of the right thumb demonstrate moderate to advanced arthritic changes at the thumb CMC joint. Prominent dorsal metacarpal bossing at the index/middle finger CMC Impression: 1.) Right thumb CMC arthritis Plan: Diagnosis and treatment options were discussed with the patient. He has failed conservative treatment and states he wishes to proceed with surgical intervention. Risks and benefit of surgery including bleeding, infection, damage to surrounding tissue, need for further surgery were discussed and the patient wished to go forward with surgery. We will have him obtain pre-op medical clearance for a right thumb CMC tendon transfer arthroplasty in the near future. The patient was agreeable with this plan of action. -Charles France DO Orthopedic Hand/Upper Extremity Surgeon Past Medical History Past Medical History: Osteoarthritis (OA), Thyroid Disorder Additional Past Medical History / Comment(s): hx spinal stenosis History of Any Multi-Drug Resistant Organisms: MRSA Date of last positivie culture/infection: 2008 MDRO Source:: sinus Past Surgical History: Back Surgery, Cholecystectomy, Hernia Repair, Joint Replacement, Orthopedic Surgery Additional Past Surgical History / Comment(s): marcelina shoulder rotator cuff, marcelina shoulder decompression, rt shoulder bone spur, , marcelina knee arthroscopy, katia/plate rt lower leg & then removed, toe joint replacement rt great toe x2, sinus surgery x 3, left knee replacement, neck fusion, laminectomy, left hip replacement Past Anesthesia/Blood Transfusion Reactions: Postoperative Nausea & Vomiting (PONV) Smoking Status: Never smoker - Past Family History Mother Family Medical History: Cancer Additional Family Medical History / Comment(s): lung Medications and Allergies Home Medications Medication Instructions Recorded Confirmed Type Levothyroxine Sodium [Synthroid] 175 mcg PO DAILY 07/31/15 08/23/21 History Ibuprofen [Motrin] 800 mg PO Q8H PRN 09/28/20 08/23/21 History Allergies Allergy/AdvReac Type Severity Reaction Status Date / Time clarithromycin [From Biaxin] Allergy Rash/Hives Verified 08/23/21 13:12 Physical Examination Osteopathic Statement: *. No significant issues noted on an osteopathic struc tural exam other than those noted in the History and Physical/Consult.
[2021-08-29] MEDS ORDERED: LIDOCAINE 1% (10MG/ML) FOR IV START INTRADERMA ONE (08:00)
[2021-08-29] MEDS ORDERED: ONDANSETRON 4 MG/2 ML VIAL ONE (08:04)
[2021-08-29] MEDS ORDERED: LACTATED RINGERS 1,000 ML IV ONE (08:12)
[2021-08-29] MEDS ORDERED: DEXAMETHASONE SOD PHOSPHATE 4 MG/ML 1 ML VIAL IVP ONE (08:13)
[2021-08-29] MEDS ORDERED: MIDAZOLAM 2 MG/2 ML VIAL IVP ONE (08:19)
[2021-08-29] MEDS ORDERED: fentaNYL (PF) 50 MCG/ML 2 ML AMP IVP ONE (08:19)
[2021-08-29] MEDS ORDERED: SODIUM CHLORIDE 0.9% (PF) 10 ML VIAL ONE (08:45)
[2021-08-29] MEDS ORDERED: MIDAZOLAM 2 MG/2 ML VIAL ONE (08:45)
[2021-08-29] MEDS ORDERED: LIDOCAINE 1% INJ 10MG/ML (20 ML MDV) ONE (08:45)
[2021-08-29] MEDS ORDERED: ePHEDrine 50 MG/ML 1 ML AMP ONE (08:45)
[2021-08-29] MEDS ORDERED: PHENYLEPHRINE-0.9% NACL SYG 1,000 MCG/10 ML SYRINGE ONE (08:45)
[2021-08-29] MEDS ORDERED: ROPIVACAINE 5 MG/ML 30 ML VIAL ONE (08:45)
[2021-08-29] MEDS ORDERED: diphenhydrAMINE 50 MG/ML 1 ML VIAL ONE (08:45)
[2021-08-29] MEDS ORDERED: PROPOFOL 10 MG/ML 20 ML VIAL IV ONE (08:45)
[2021-08-29] MEDS ORDERED: KETOROLAC 15 MG/ML 1 ML VIAL ONE (08:45)
--- NOTE | 2021-08-29 09:15 | P.ANPRN ---
Procedure Note - Anesthesia - Nerve Block Performed Right Axillary Single Time Out Performed: Yes (0819) Date of Procedure: 08/29/21 Procedure Start Time: :20 Procedure Stop Time: :24 Location of Patient: PreOp Indication: Acute Post-Operative Pain, Requested by Surgeon Specifically requested for management of pain by DrJosselyn: Charles France Sedation Type: Sedate with meaningful contact maintained Preparation: Sterile Prep Position: Supine Catheter: None Needle Types: Pajunk Needle Gauge: 21 Ultrasound used to visualize needle placement: Yes Ultrasound used to observe medication spread: Yes Injectate: 0.5% Ropivacaine (see comment for volume) (7.5 cc + 2.5 cc nacl pf x4 each nerve. Msklcut, ulnar, radial median) Blood Aspirated: No Pain Paresthesia on Injection Noted: No Resistance on Injection: Normal Image Stored and Saved: Yes Events: Uneventful and Well Tolerated
[2021-08-29 10:39] VITALS: RESP 16; TEMP 96.8
[2021-08-29 11:32] VITALS: BP 114/71; PULSE 69
--- NOTE | 2021-08-29 17:59 | P.OP ---
Date of Procedure: 08/29/21 Preoperative Diagnosis: Right thumb CMC arthritis, severe. Postoperative Diagnosis: Same Procedure(s) Performed: Right thumb CMC tendon transfer arthroplasty with trapezium carpectomy. Anesthesia: PRERNA, regional Surgeon: Charles France Estimated Blood Loss (ml): 5 Pathology: none sent Condition: stable Disposition: PACU Operative Findings: This is a 61 year old male with a history of severe right thumb CMC arthritis that has failed conservative treatment. Risks and benefits of surgery were discussed with the patient including bleeding, damage to surrounding tissue, infection, need for further surgery as well as risks of anesthesia including pulmonary embolism and even and the patient wished to proceed with surgical intervention. The patients was seen in the pre-operative area by myself. Consent and H&P were completed and updated. The correct extremity was marked in the pre-operative area by myself and all other questions were answered. Patient received a upper extremity nerve block by the department of anesthesia. He then was brought to the operating room by the department of anesthesia. They remained on the portable stretcher and a rolling hand table was brought to the side of the operative extremity. The patient was then drifted off to sleep by the department of anesthesia. A nonsterile tourniquet was then applied to the operative extremity and the left upper extremity was then prepped and draped in normal sterile fashion. Pre-operative time out was performed indicating the correct patient, procedure and laterality. All in the room agreed. Pre-operative antibiotics were given prior to skin incision. The operative extremity was the exsanguinated with an esmarch bandage and the tourniquet was inflated to 250mmHg. Longitudinal incision was made over the right thumb CMC joint with a 15 blade scalpel. Blunt dissection was taken down to subcutaneous tissues with littler scissors taking care to preserve the branches of the superficial radial nerve. Dorsal radial artery was identified proximally in the incision and protected throughout the procedure. Scalpel was then made to incise the thumb CMC joint creating full thickness flaps off of the proximal metacarpal base and trapezium, this plane was further developed with a periosteal elevator. Elevator was then utilized to identify the thumb CMC joint and scaphotrapezial joint. Rongeur was then used to excise the trapezium in a piecemeal fashion. After trapeziectomy was performed FCR tendon was identified at the floor of the bed where the trapezium previously was located and the dorsal base of the thumb metacarpal was drilled with a 2.0 drill bit followed by a 3.5 drill bit. Rongeur was used to make a small groove at the dorsal base of metacarpal. Attention was then drawn to the volar wrist. Incision was made over FCR tendon distally and proximally at the level of the musculotendinous junction. FCR sheath was then opened and widened with a small hemostat. 2-0 Ethibond was then used to rodriguez the FCR tendon in half and the ulnar half of FCR tendon was harvested and sharply dissected by passing the 2-0 ethibond through the proximal incision and then sharply cutting the proximal portion of the tendon. The ulnar half of the FCR tendon was then passed through the FCR sheath and separation from the radial half of the tendon was carried all the way down it's insertion at the index metacarpal base. Loop was made with #2 suture through previously made drill holes and the FCR tendon was passed through the drill hole at the base of the first metacarpal and tensioned appropriately. 4-0 Ethibond was then used to suture the FCR tendon to itself in a figure of 8 fashion, this was repeated twice. 90 degree curved hemostat was then used to wrap the FCR tendon around itself and secured with multiple 4-0 ethibond figure of 8 stitches. The wound was then irrigated. Capsular closure was performed with 4-0 monocryl. Skin was closed with several interrupted 4-0 monocryl sutures followed by a running subcuticular stitch. Sterile dressing consisting of mastisol and steri strips followed by 4x4s cast padding, and a thumb spica plaster splint was applied. Tourniquet was let down and the hand had brisk cap refill and normal perfusion immediately. The patient was then woken by the department of anesthesia and transferred to PACU in stable condition. Charles France D.O. Orthopedic Hand/Upper Extremity Surgeon
== END 2021-08-29 12:08 | disposition home or self-care (01) ==
LOC: OR 07:05
PROVIDERS: ATTEND Orthopaedic Surgery Hand Surgery
DX: M18.11 Unilateral primary osteoarthritis of first carpometacarpal joint, right hand (principal); E07.9 Disorder of thyroid, unspecified; M48.00 Spinal stenosis, site unspecified; Z86.14 Personal history of Methicillin resistant Staphylococcus aureus infection; Z79.890 Hormone replacement therapy; Z88.1 Allergy status to other antibiotic agents; Z98.890 Other specified postprocedural states; Z90.49 Acquired absence of other specified parts of digestive tract; Z96.652 Presence of left artificial knee joint; Z96.642 Presence of left artificial hip joint; Z98.1 Arthrodesis status; Z80.1 Family history of malignant neoplasm of trachea, bronchus and lung
CPT/HCPCS: 25447; 25310; 93005; 64417; 76942; J2250; J1200; J1100; J0690; J2405; J2001; J3010; J2795; J1885; J2370; J2704; 64415

== ENCOUNTER → 2022-01-04 | Outpatient (CLI) | payer MEDICARE, BC ==
--- NOTE | 2022-01-05 01:12 | MR ---
EXAMINATION TYPE: MR lumbar spine wo con DATE OF EXAM: 01/04/2022 COMPARISON: None HISTORY: Low back pain that radiates into left hip and thigh causing numbness for 6 weeks. Multiplanar multiecho imaging of the lumbar spine without contrast. There is mild degenerative disc space narrowing in the lumbar spine. Normal alignment. There is posterior disc bulging from L3 to S1. There is some L3-4 bony spinal steno sis due to facet arthropathy and disc bulging. There is no lumbar paraspinal mass. No compression fra cture. No evidence of focal bone destruction. IMPRESSION: Spondylotic changes and L3-4 bony spinal stenosis. Multilevel mild disc bulging. No fracture.
== END | disposition home or self-care (01) ==
LOC: RADMRIMAIN 21:22
DX: M48.062 Spinal stenosis, lumbar region with neurogenic claudication (principal)
CPT/HCPCS: 72148

== ENCOUNTER → 2022-08-20 | Outpatient (CLI) | payer MEDICARE, BC | END | disposition home or self-care (01) | LOC: LABPAT 14:59 | PROVIDERS: ATTEND Orthopaedic Surgery | DX: Z01.812 Encounter for preprocedural laboratory examination (principal); Z22.322 Carrier or suspected carrier of Methicillin resistant Staphylococcus aureus; M17.11 Unilateral primary osteoarthritis, right knee | CPT/HCPCS: 87070 ==

== ENCOUNTER 2022-09-23 06:01 | Day surgery (SDC) | payer BC, MEDICARE ==
[2022-09-18 13:32] VITALS: BMI 27.1
[~2022-09-23 06:01] MED LIST changes: -DEXAMETHASONE SOD PHOSPHATE 4 MG/ML 1 ML VIAL IV ONE; -HYDROmorphone 0.5 MG/0.5 ML SYRINGE IVP PRN; -ONDANSETRON 4 MG/2 ML VIAL IVP ONE; -ROPIVACAINE/EPI/CLONIDINE/KET 50 ML SYRINGE MISCELLANE PRN; -TRANEXAMIC ACID 1,000 MG in SODIUM CHLORIDE 0.9% 100 ML IVPB PRN; +TRANEXAMIC ACID IN NACL,ISO-OS 1,000 MG in SALINE 1 100ML.BAG IVPB PRN
[2022-09-23] MEDS ORDERED: DEXAMETHASONE SOD PHOSPHATE 4 MG/ML 1 ML VIAL IV ONE (06:46)
[2022-09-23] MEDS ORDERED: LIDOCAINE 1% (10MG/ML) FOR IV START INTRADERMA PRN (06:46)
[2022-09-23] MEDS ORDERED: MIDAZOLAM 2 MG/2 ML VIAL IV PRN (06:46)
[2022-09-23] MEDS ORDERED: LACTATED RINGERS 1,000 ML IV SCH (06:46)
[2022-09-23] MEDS ORDERED: ONDANSETRON 4 MG/2 ML VIAL IVP ONE (06:46)
[2022-09-23] MEDS ORDERED: DEXAMETHASONE SOD PHOSPHATE 4 MG/ML 1 ML VIAL IVP ONE (07:00)
[2022-09-23] MEDS ORDERED: fentaNYL (PF) 50 MCG/1 ML VIAL IVP ONE (07:16)
[2022-09-23] MEDS ORDERED: MIDAZOLAM 2 MG/2 ML VIAL IVP ONE (07:16)
[2022-09-23 07:37] VITALS: RESP 16; TEMP 97.5
[2022-09-23] MEDS ORDERED: SODIUM CHLORIDE 0.9% (PF) 10 ML VIAL ONE (07:37)
[2022-09-23] MEDS ORDERED: SUCCINYLCHOLINE CHLORIDE 200 MG/10 ML VIAL IV ONE (07:37)
[2022-09-23] MEDS ORDERED: PROPOFOL 10 MG/ML 20 ML VIAL IV ONE (07:37)
[2022-09-23] MEDS ORDERED: ROPIVACAINE 5 MG/ML 30 ML VIAL ONE (07:37)
[2022-09-23] MEDS ORDERED: WATER FOR INJECTION, STERILE 10 ML VIAL IV ONE (07:37)
[2022-09-23] MEDS ORDERED: TRANEXAMIC ACID IN NACL,ISO-OS 1,000 MG/100 ML BAG ONE (07:37)
[2022-09-23] MEDS ORDERED: ePHEDrine 50 MG/ML 1 ML VIAL ONE (07:37)
[2022-09-23] MEDS ORDERED: fentaNYL (PF) 50 MCG/ML 2 ML AMP ONE (07:37)
[2022-09-23] MEDS ORDERED: LIDOCAINE 2% INJ 20 MG/ML (2 ML VIAL) ONE (07:37)
[2022-09-23] MEDS ORDERED: HYDROmorphone (PF) 1 MG/ML ONE (07:37)
--- NOTE | 2022-09-23 07:37 | HP ---
HISTORY AND PHYSICAL DATE OF SURGERY: 09/23/2022. HISTORY OF PRESENT ILLNESS: Tej Abrams is a 62-year-old gentleman seen with progressive symptomatic right knee osteoarthritis. We discussed options for treatment. He elected to proceed with right total knee arthroplasty. Consent was obtained. Medical clearance was provided by Dr. Valdez. PAST MEDICAL HISTORY: Hypothyroidism, gastroesophageal reflux disease. PAST SURGICAL HISTORY: Shoulder arthroscopy, knee arthroscopy, left total knee arthroplasty, removal of hardware, spine surgery. DAILY MEDICATIONS: 1. Synthroid. 2. Ibuprofen. 3. Gabapentin. 4. Mobic. ALLERGIES: Biaxin. SOCIAL HISTORY: Denies tobacco use. PHYSICAL EVALUATION OF THE RIGHT KNEE: His range of motion is negative to 125. There is a mild effusion. Crepitus, medial patellofemoral compartments with range of motion. Some pain with patellofemoral compression. Ligaments stable. Hip rotation without pain. Distal neurovascular exam is intact. RADIOGRAPHS: Right knee radiographs revealed severe osteoarthritic changes. IMPRESSION: 1. Right knee osteoarthritis. 2. Hypothyroidism. PLAN: Right total knee arthroplasty. MMODL / IJN: [id number] /
[2022-09-23] MEDS ORDERED: LACTATED RINGERS 1,000 ML IV ONE ×4 (07:42→09:23)
[2022-09-23] MEDS ORDERED: ceFAZolin 1,000 MG in SODIUM CHLORIDE 0.9% 1,000 ML IRRIGATION ONE (08:22)
[2022-09-23] MEDS ORDERED: ROPIVACAINE 1,100 MG, SODIUM CHLORIDE 0.9% 500 ML 330 ML, EMPTY PAIN BALL 1 EACH MISCELLANE PRN ×2 (08:24)
--- NOTE | 2022-09-23 08:27 | P.ANPRN ---
Procedure Note - Anesthesia - Nerve Block Performed Right Adductor Canal Infusion Time Out Performed: Yes (0715) Date of Procedure: 09/23/22 Location of Patient: PreOp Indication: Acute Post-Operative Pain, Requested by Surgeon Specifically requested for management of pain by DrJosselyn: Nolan Martinez Sedation Type: Sedate with meaningful contact maintained Preparation: Sterile Prep, Sterile Dressing Position: Supine Catheter: Indwelling Needle Types: Pajunk Needle Gauge: 18 Ultrasound used to visualize needle placement: Yes Ultrasound used to observe medication spread: Yes Injectate: 0.5% Ropivacaine (see comment for volume) (20cc + saline 10 cc) Blood Aspirated: No Pain Paresthesia on Injection Noted: No Resistance on Injection: Normal Image Stored and Saved: Yes Events: Uneventful and Well Tolerated Right iPack Single Time Out Performed: Yes Date of Procedure: 09/23/22 Location of Patient: PreOp Indication: Acute Post-Operative Pain, Requested by Surgeon Specifically requested for management of pain by DrJosselyn: Nolan Martinez Sedation Type: Sedate with meaningful contact maintained Preparation: Sterile Prep Position: Left Lateral Catheter: None Needle Types: Pajunk Needle Gauge: 21 Ultrasound used to visualize needle placement: Yes Ultrasound used to observe medication spread: Yes Injectate: 0.5% Ropivacaine (see comment for volume) (20 cc + 10 cc saline) Blood Aspirated: No Pain Paresthesia on Injection Noted: No Image Stored and Saved: Yes Events: Uneventful and Well Tolerated
[2022-09-23] MEDS ORDERED: NALOXONE 0.4 MG/ML 1 ML VIAL IV PRN (09:23)
[2022-09-23] MEDS ORDERED: ONDANSETRON 4 MG/2 ML VIAL IVP PRN (09:23)
[2022-09-23] MEDS ORDERED: HYDROcodone/APAP 7.5-325MG 1 EACH TAB PO PRN (09:23)
[2022-09-23] MEDS ORDERED: HYDROmorphone 1 MG/ML 1 ML SYRINGE IVP PRN (09:23)
[2022-09-23] MEDS ORDERED: HYDROcodone/APAP 5-325MG 1 EACH TAB PO PRN (09:23)
[2022-09-23] MEDS ORDERED: HYDROmorphone 0.5 MG/0.5 ML SYRINGE IVP PRN ×2 (09:23)
--- NOTE | 2022-09-23 09:23 | P.OP ---
Date of Procedure: 09/23/22 Preoperative Diagnosis: Right knee osteoarthritis Postoperative Diagnosis: Right knee osteoarthritis Procedure(s) Performed: Right total knee arthroplasty Implants: 1. Depuy attune size 8 cruciate retaining right cemented femur 2. Depuy attune size 7 fixed-bearing cemented tibial baseplate 3. Depuy attune size 8 fixed bearing cruciate retaining 5 mm polyethylene tibial insert 4. Depuy attune 41 mm all polyethylene cemented patella Anesthesia: GETA, regional (Adductor canal catheter) Surgeon: Nolan Martinez Supervisor Press Room #1: Ezra Forrester Estimated Blood Loss (ml): 50 Pathology: other (Bone) Condition: stable Disposition: PACU Indications for Procedure: 62-year-old patient seen with symptomatic right knee osteoarthritis. After treatment options were discussed, he elected to proceed with total knee arthroplasty Operative Findings: See description of procedure Description of Procedure: Patient was taken to the operative suite after having an adductor canal catheter placed by the department of anesthesia. Patient underwent a general anesthetic by the department of anesthesia. Patient was given preoperative IV intake antibiotics and TXA. A well-padded tourniquet was placed about the right lower extremity. The lower extremity was then prepped and draped in the normal sterile orthopedic fashion. The extremity was elevated, a tourniquet was insufflated to 300. A standard anterior incision was made sharply through skin. Dissection was taken down through the subcutaneous soft tissues down to the extensor mechanism. A medial arthrotomy was performed, patella was everted and knee was flexed. There was advanced osteoarthritis noted. I introduced my distal intramedullary femoral drill. I then introduced the distal femoral cutting jig. Pascual VALDEZ secured the cutting jig with 2 pins. I held retractors in position while Pascual VALDEZ performed the distal femoral resection through the guide area we now removed her distal femoral cutting guide. We now placed our 4-in-1 femoral cutting block and positioned and it was secured with 2 pins by Pascual VALDEZ while I held the block in position. The distal femoral finishing was now completed. A proximal tibial cutting guide was positioned. I held the guide in the appropriate position with both hands well Pascual VALDEZ inserted stabilizing pins into the guide. Proximal tibial cut was made. We now placed a trial femoral component into position, along with an appropriate size tibial tray and insert. We now took the knee through range of motion and had full extension good flexion and good overall soft tissue balance noted. The patella was everted and stabilized with 2 towel clips held by Pascual VALDEZ while I performed a flush with patellar quad tendon utilizing a fresh sawblade. We templated the patella, appropriate drill holes were made. An appropriate trial patella was positioned, knee was taken through full range of motion with the patella tracking very nicely. The trial patella was removed. Drill holes were made through the femoral component. All trial components were removed after marking off the appropriate rotation of the tibia. Retractors were now positioned along the proximal tibia. An appropriate keel punch was made with the appropriate size tibial guide by myself on Pascual VALDEZ assisted by holding retractors. At this point appropriate size implants were chosen and opened. The joint was irrigated copiously with pulse lavage mechanical irrigation. The wound was irrigated with pulse lavage mechanical irrigation. We mixed antibiotic methylmethacrylate. We placed the knee into flexion. We placed multiple retractors assisted by Pascual VALDEZ to expose the proximal tibia. Once the methyl methacrylate was ready, the tibial component was cemented into place removing any excess methylmethacrylate form by both myself and Pascual VALDEZ. The femoral component was cemented into place removing the removing any excess methylmethacrylate performed by both myself and Pascual VALDEZ. We then inserted the appropriate size polyethylene tibial insert. We made sure that it was locked into position. We took the knee into full extension, and then back in a flexion making sure we had removed any excess methylmethacrylate. The patellar component was then cemented down and secured with clamp. Excess methylmethacrylate removed. We kept the knee in full extension, patellar clamp in position until methylmethacrylate had hardened. Once it had hardened the patellar clamp was removed. The knee was taken through full range of motion. The patella tracked nicely. There was good soft tissue balancing. The tourniquet was now released. Additional hemostasis was achieved via electrocautery. A second gram of TXA was given. The wound again was irrigated with pulse lavage mechanical irrigation. The extensor mechanism was repaired with Ethibond suture. We checked the repair with range of motion and it was stable. The subcutaneous soft tissues were repaired with Vicryl in layers. The skin was approximated with pernio/Dermabond. Sterile dressings were applied followed by loose web roll and Mello bandage. The patient was fernandes sferred to a bed, and taken to recovery in stable and satisfactory condition. Pascual VALDEZ assisted with this complex procedure.
[2022-09-23] MEDS: HYDROmorphone 0.5 MG/0.5 ML SYRINGE IVP PRN ×2 (10:07→10:19)
--- NOTE | 2022-09-23 10:26 | XR ---
EXAMINATION TYPE: XR knee limited RT DATE OF EXAM: 09/23/2022 CLINICAL HISTORY: Right knee pain and arthritis status post total knee replacement. TECHNIQUE: Portable AP and crosstable lateral views of the right knee are obtained immediately posto peratively. COMPARISON: Outside right knee x-ray July 16, 2022 FINDINGS: Metallic hardware from total right knee arthroplasty is seen and appears satisfactory in a lignment and position. There is evidence of recent surgery with diffuse subcutaneous gas and soft ti ssue swelling noted. Broad-based ossific projection posterior proximal tibial diaphysis could reflect osteochondroma is unchanged from outside x-ray. IMPRESSION: METALLIC HARDWARE FROM TOTAL RIGHT KNEE ARTHROPLASTY IS SATISFACTORY IN ALIGNMENT.
[2022-09-23 13:39] VITALS: BP 135/85; PULSE 83
== END 2022-09-23 14:32 | disposition home health service (06) ==
LOC: OR 06:01
PROVIDERS: ATTEND Orthopaedic Surgery
DX: M17.11 Unilateral primary osteoarthritis, right knee (principal); E03.9 Hypothyroidism, unspecified; K21.9 Gastro-esophageal reflux disease without esophagitis; Z98.890 Other specified postprocedural states; Z79.899 Other long term (current) drug therapy
CPT/HCPCS: 97530; 97161; 64999; 64448; 76942; 88300; 73560; 27447; C1776; C1713 ×2; C1751; J2250; J0330; J1100; J0690 ×2; J2405; J3010 ×2; J1170 ×2; J2795; J2704; J2001

== ENCOUNTER → 2023-04-21 | Outpatient (CLI) | payer MEDICARE ==
--- NOTE | 2023-04-21 23:57 | MR ---
MRI CERVICAL SPINE: CLINICAL HISTORY: Neck Pain. Stiff neck with pain on bending on and off for years causing pain or wea kness into both arms. History of prior surgery 2018. TECHNIQUE: Multiplanar, multisequence imaging of the cervical spine is performed without and with IV contrast, 9 cc of gadolinium was given intravenously. COMPARISON: MRI cervical spine 2014. FINDINGS: Sagittal images of the cervical spine show the craniocervical junction to remain within nor mal limits. The cervical and upper thoracic spinal cord is now normal in course, caliber, and signal . Vertebral alignment is anatomic and improved after interval surgery from 2014 MRI. There is artifa ct from metallic disc material and/or endplate changes at C4-C5 through the C6-C7 level on current MR I. The vertebral body heights remain normal. Disc heights are preserved above and below surgical leve ls. The bone marrow signal intensity is within normal limits. No abnormal postcontrast enhancement i s seen. Axial images at C2-C3 level shows broad-based right paracentral/foraminal disc protrusion effacing th e anterior thecal sac along with uncovertebral facet degenerative changes causing mild to moderate ri ght-sided neural foraminal narrowing. Left-sided neural foramen is patent. No significant change from prior MRI. Axial images at C3-C4 level shows central disc protrusion effacing anterior thecal sac along with rig ht foraminal disc protrusion component causing asymmetric [id number] right-sided neural foramin al narrowing. No significant change from prior MRI. Axial images at C4-C5 level shows artifact from surgical change. Bilateral neural foramina remained p atent. Spinal canal is preserved. Axial images at C5-C6 level show improved alignment after surgery. There is artifact from surgical ch kinjal. There is mild bilateral neural foraminal narrowing due to facet arthropathy. Spinal canal gross ly preserved on sagittal images. Axial images at C6-C7 level show artifact from surgical change. There is uncal vertebral facet arthro meka causing persistent moderate to severe bilateral neural foraminal narrowing. Spinal canal grossl y preserved on sagittal images. Axial images at C7-T1 level appear within normal limits. IMPRESSION: Interval surgical change to the mid to lower cervical spine with improved alignment and i mproved findings at these levels. Stable multilevel degenerative changes in the upper cervical spine.
== END | disposition home or self-care (01) ==
LOC: RADMRIMAIN 20:45
PROVIDERS: ATTEND Orthopaedic Surgery
DX: M48.062 Spinal stenosis, lumbar region with neurogenic claudication (principal); M47.812 Spondylosis without myelopathy or radiculopathy, cervical region; M51.36 Other intervertebral disc degeneration, lumbar region; Z98.1 Arthrodesis status
CPT/HCPCS: 72156; A9585

== ENCOUNTER → 2023-05-07 | Outpatient (CLI) | payer MEDICARE ==
--- NOTE | 2023-05-08 08:07 | MR ---
EXAMINATION TYPE: MR lumbar spine wo con DATE OF EXAM: 05/07/2023 COMPARISON: 01/04/2022 HISTORY: Pain and weakness low back and legs CONTRAST: 0 mL intravenous Gadavist. TECHNIQUE: Multiplanar, multisequence images of the lumbar spine were acquired on a 3.0 Chrissie magnet. For purpos es of this examination numbering the disc space narrowing in the lower region is labeled L5-S1. There may be a patent S1 to disc space hasn't. Transitional vertebral body may be present. Plain film david elation recommended prior to surgical intervention. FINDINGS: Moderate type I degenerative disc changes are present L5-S1. Cord terminates at the L2 lev el. L5-S1: Disc herniation extending beyond the endplate of L5 is present with mild anterior thecal sac c ompression. No AP spinal canal stenosis is present. Facet hypertrophy is present. There is severe rig ht and moderate to severe left foraminal stenosis. L4-L5: Broad-based disc bulge with mild anterior thecal sac compression. No AP spinal canal stenosis is present. Facet hypertrophy is present on the left. There is moderate to severe right and severe le ft foraminal stenosis. Disc bulging is increased over the interval this level. L3-L4: Broad-based disc bulge is mild to moderate anterior thecal sac compression. Facet hypertrophy is present. Moderate to severe right and moderate left foraminal stenosis is present. L2-L3: No significant disc bulge or disc herniation. No spinal canal stenosis. Mild foraminal narro wing is present. Facet hypertrophy is present. Some moderate bilateral posterior lateral thecal sac c ompression is present. L1-L2: No significant disc bulge or disc herniation. No spinal canal stenosis. No foraminal stenosi s. T12-L1: No significant disc bulge or disc herniation. No spinal canal stenosis. No foraminal stenos is. IMPRESSION: 1. Loss of disc height and endplate changes L5-S1. 2. Disc bulging present at L3-4 through L5-S1. This is increasing at L4-5 comparison. These of mild t o moderate anterior thecal sac compression without AP spinal canal stenosis. 3. Multilevel moderate to severe foraminal stenosis discussed above
== END | disposition home or self-care (01) ==
LOC: RADMRIMAIN 20:00
PROVIDERS: ATTEND Orthopaedic Surgery
DX: M99.73 Connective tissue and disc stenosis of intervertebral foramina of lumbar region (principal); M51.37 Other intervertebral disc degeneration, lumbosacral region; M48.062 Spinal stenosis, lumbar region with neurogenic claudication; Z98.1 Arthrodesis status
CPT/HCPCS: 72148

== ENCOUNTER → 2023-08-12 | Outpatient (CLI) | payer MEDICARE ==
--- NOTE | 2023-08-16 13:42 | NM ---
EXAMINATION TYPE: NM bone 3 phase DATE OF EXAM: 08/12/2023 COMPARISON: 2 views left hip 08/01/2023, 2 views right knee 12/25/2022, 2 views left knee 10/25/2020 CLINICAL INDICATION: Male, 62 years old with history of Painful LTHA; TECHNIQUE: Triple phase bone scintigraphy was performed from the mid chest through the knees following the injec tion of 22.9 mCi Tc 99m MDP. Blood flow and blood pool images, and 5.25 hours post injection images a cquired. FINDINGS: Normal blood flow and blood pool activity. There is relative photopenia at the site of the left hip arthroplasty. Activity otherwise throughout the pelvis otherwise appears normal and symmetric with no focal areas of abnormal uptake identified. Normal ribs activity. There is mildly increased activity seen bilaterally at the lumbosacral junction likely due to mild facet disease. There is relative photopenia seen in both knees likely consistent with bilateral knee arthroplasties. Mild hazy nonfocal activity seen throughout both knees likely rel ated to the prostheses, with no focal abnormal asymmetric activity identified. There are otherwise no foci of increased bone activity seen in the rubwg-nz-naam to suggest skeletal metastases. IMPRESSION: Photopenia related to left hip and bilateral knee arthroplasties. Mildly increased uptake about both knees, likely related to the arthroplasties.
== END | disposition home or self-care (01) ==
LOC: RADNMMAIN 07:30
PROVIDERS: ATTEND Orthopaedic Surgery
DX: T84.84XA Pain due to internal orthopedic prosthetic devices, implants and grafts, initial encounter (principal); R93.7 Abnormal findings on diagnostic imaging of other parts of musculoskeletal system; Z96.653 Presence of artificial knee joint, bilateral
CPT/HCPCS: 78315; A9503

== ENCOUNTER → 2023-11-07 | Outpatient (CLI) | payer MEDICARE ==
--- NOTE | 2023-11-07 17:50 | US ---
EXAMINATION TYPE: US groin LT DATE OF EXAM: 11/07/2023 COMPARISON: NONE CLINICAL INDICATION: Male, 63 years old with history of R10.2 PELVIC AND PERINEAL PAIN,R22.40; Patien t has pain in left groin. Assess for hernia at location of: Left groin Left groin scanned. There is a 5.3cm hypoechoic area that appears to have a 2.1cm break in the abdo jan wall. Appears to increase with valsalva. IMPRESSION: Left groin hernia. This can be confirmed with CT. Real-time scanning was performed by the ceramics teacher utilizing Valsalva and additional dynamic maneuve rs to assess for hernia.
== END | disposition home or self-care (01) ==
LOC: RADUSWWP 14:19
PROVIDERS: ATTEND Family Medicine
DX: R10.2 Pelvic and perineal pain (principal); R22.40 Localized swelling, mass and lump, unspecified lower limb

== ENCOUNTER → 2024-06-01 | Outpatient (CLI) | payer MEDICARE ==
--- NOTE | 2024-06-02 23:20 | MR ---
EXAMINATION TYPE: MR shoulder LT wo con DATE OF EXAM: 06/01/2024 COMPARISON: Prior MRI left shoulder July 12, 2020. Left shoulder x-ray May 18, 2024 HISTORY: Left shoulder pain x9 months TECHNIQUE: Multiplanar, multisequence imaging of the left shoulder is performed without contrast. FINDINGS: Rotator Cuff: Artifact from prior rotator cuff surgical repair redemonstrated. There is persistent in creased signal in the supraspinatus and infraspinatus tendons. Heterogeneity of the subscapularis ten don redemonstrated. No new retracted full-thickness tear. Rotator cuff muscle bulk is maintained. Acromioclavicular Joint: Moderate to severe narrowing and spurring with moderate capsular hypertrophy is redemonstrated. Glenohumeral Joint: Small to moderate size joint effusion again seen. Moderate narrowing and spurring is redemonstrated. Labrum: Blunting superior labrum with abnormal signal again seen. Biceps Tendon: The long head of biceps is in normal location within bicipital groove. Intracapsular p ortion is well visualized Bone marrow signal: More prominent subchondral cystic change along the superolateral aspect of the hu meral head. Other: No additional significant abnormality is appreciated. IMPRESSION: 1. Prior rotator cuff surgical changes redemonstrated with persistent tendinosis/partial tearing of t he rotator cuff tendons. 2. Xpjkncde-hv-ywrhjn degenerative changes are present and more prominent versus prior MRI. [facility], , 06/02/2024 11:17 PM
== END | disposition home or self-care (01) ==
LOC: RADMRIMAIN 19:00
PROVIDERS: ATTEND Orthopaedic Surgery
DX: M25.512 Pain in left shoulder

== ENCOUNTER → 2024-08-23 | Outpatient (CLI) | payer MEDICARE ==
--- NOTE | 2024-08-23 15:45 | XR ---
Chest, 2 view. HISTORY: Presurgical workup COMPARISON: None TECHNIQUE: PA and lateral views the chest are obtained. FINDINGS: The lungs are clear and there is no consolidative or interstitial opacity. There is no pleural effusion or pneumothorax. The heart, pulmonary vasculature, mediastinum and radha appear normal. The osseous structures are intact. IMPRESSION: No significant abnormality seen. No acute cardiopulmonary disease. [facility], , 08/23/2024 3:43 PM
[2024-08-23 15:54] LABS: Appearance,Urine Clear (Clear); Bilirubin,Urine Negative (Negative); Blood,Urine Small (Negative); Color,Urine Yellow; Glucose,Urine (UA) Negative (Negative); Ketones,Urine Negative (Negative); Leukocyte Esterase,Urine Negative (Negative); Mucus,Urine Rare /hpf; Nitrite,Urine Negative (Negative); PH, Urine 5.5 (5.0-8.0); Protein,Urine Negative (Negative); RBC,Urine 2 /hpf (0-5); Specific Gravity,Urine 1.025 (1.001-1.035); Urobilinogen,Urine <2.0 mg/dL (<2.0); WBC,Urine 1 /hpf (0-5)
[2024-08-23 16:01] LABS: Prothrombin Time 10.6 sec (10.0-12.5)
[2024-08-23 16:06] LABS: Partial Thromboplastin Time 20.4 sec (22.0-30.0)
[2024-08-23 19:05] LABS: Basophils # (A) 0.07 X 10*3/uL (0.00-0.10); Basophils % (A) 0.5 %; Eosinophils # (A) 0.08 X 10*3/uL (0.04-0.35); Eosinophils % (A) 0.6 %; HCT 45.9 % (39.6-50.0); HGB 15.2 g/dL (13.0-17.0); Lymphocytes # (A) 0.72 X 10*3/uL (0.90-5.00); Lymphocytes % (A) 5.3 %; MCHC 33.1 g/dL (32.0-37.0); MCV 87.6 FL (80.0-97.0); Mean Platelet Volume 10.1 FL (9.5-12.2); Monocytes % (A) 10.3 %; NRBC Per 100 WBC 0 X 10*3/uL (0.00-0.01); Neutrophils # (A) 11.09 X 10*3/uL (1.80-7.70); Neutrophils % (A) 81.6 %; Platelet Count 206 X 10*3/uL (140-440); RBC 5.24 X 10*6/uL (4.40-5.60); RDW 13.8 % (11.5-14.5); WBC 13.59 X 10*3/uL (4.50-10.00)
[2024-08-23 19:39] LABS: ALT 31 U/L (10-49); AST 20 U/L (14-35); Albumin 4.3 g/dL (3.8-4.9); Albumin/Globulin Ratio 1.59 Ratio (1.60-3.17); Alkaline Phosphatase 80 U/L (41-126); Blood Urea Nitrogen 22.6 mg/dL (9.0-27.0); Calcium 9.4 mg/dL (8.7-10.3); Carbon Dioxide 23.5 mmol/L (21.6-31.8); Chloride 101 mmol/L (96-109); Globulin 2.7 g/dL (1.6-3.3); Glucose 111 mg/dL (70-110); Potassium 3.9 mmol/L (3.5-5.5); Prostate Specific Antigen 4.88 ng/mL (0.000-4.500); Sodium 138 mmol/L (135-145); T4, Free (Free Thyroxine) 1.51 ng/dL (0.80-1.80); Total Bilirubin 0.8 mg/dL (0.3-1.2)
== END | disposition home or self-care (01) ==
LOC: LABPAT 14:57
PROVIDERS: ATTEND Family Medicine
DX: Z01.818 Encounter for other preprocedural examination (principal); E03.9 Hypothyroidism, unspecified; N40.0 Benign prostatic hyperplasia without lower urinary tract symptoms; Z77.128 Contact with and (suspected) exposure to other hazards in the physical environment
CPT/HCPCS: 71046; 80053; 81001; 84153; 84439; 84443; 85025; 85610; 85730

== ENCOUNTER 2024-09-16 09:25 | Day surgery (SDC) | payer MEDICARE ==
--- NOTE | 2024-09-15 23:14 | HP ---
HISTORY AND PHYSICAL DATE OF SURGERY: 09/16/2024. HISTORY OF PRESENT ILLNESS: Tej Abrams is a 64-year-old gentleman, seen progressive left shoulder pain. Options for treatment were discussed with him. He elected to proceed with left shoulder arthroscopy. Consent regarding procedure obtained. PAST MEDICAL HISTORY: Hypothyroidism. PAST SURGICAL HISTORY: Shoulder arthroscopy, knee arthroscopy, total knee arthroplasty, and total hip arthroplasty. DAILY MEDICATIONS: 1. Synthroid. 2. Motrin. ALLERGIES: Biaxin. SOCIAL HISTORY: Denies tobacco use. PHYSICAL EVALUATION OF THE LEFT SHOULDER: Flexion is 90 degrees. Abduction is 90 degrees. External rotation is 50 degrees. Pain and weakness. Tenderness along the anterolateral acromion, glenohumeral joint, acromioclavicular joint, and rotator cuff tendon. Impingement is positive at 100 degrees. Cross-body adduction sign is positive. Drop-arm sign is positive. Distal neurovascular exam is intact. IMAGING STUDIES: Radiographs of left shoulder revealed moderate glenohumeral osteoarthritis, cystic changes of the tuberosity, acromioclavicular joint osteoarthritis. MRI of left shoulder, moderate to severe acromioclavicular joint osteoarthritis, partial rotator cuff tendon tear, labral tear. Moderate glenohumeral joint osteoarthritis. IMPRESSION: 1. Left shoulder impingement with rotator cuff tear. 2. Left shoulder acromioclavicular joint osteoarthritis. 3. Left shoulder labral tear. 4. Left shoulder moderate osteoarthritis. PLAN: Left shoulder arthroscopy with subacromial decompression, rotator cuff repair, Milton procedure, debridement of labral tear. MMODL / IJN: [id number] /
[2024-09-16] MEDS: IV FLUID CONTINUATION 1,000 ML IV ONE (10:02)
[2024-09-16] MEDS: LACTATED RINGERS 1,000 ML BAG IV STA (10:19)
[2024-09-16] MEDS: MIDAZOLAM 2 MG/2 ML VIAL IV ONE (10:20)
[2024-09-16] MEDS: ONDANSETRON 4 MG/2 ML VIAL IVP STA (10:25)
[2024-09-16] MEDS: DEXAMETHASONE SOD PHOSPHATE 4 MG/ML 1 ML VIAL IVP STA (10:28)
--- NOTE | 2024-09-16 10:55 | P.ANPRN ---
Procedure Note - Anesthesia - Nerve Block Performed Left Interscalene Single Time Out Performed: Yes Date of Procedure: 09/16/24 Procedure Start Time: Procedure Stop Time: Location of Patient: PreOp Indication: Acute Post-Operative Pain, Analgesia, Requested by Surgeon Sedation Type: Sedate with meaningful contact maintained Preparation: Sterile Prep Position: Sitting Needle Types: Pajunk Needle Gauge: 21 Ultrasound used to visualize needle placement: Yes Ultrasound used to observe medication spread: Yes Injectate: 0.5% Ropivacaine (see comment for volume) (Ropiv 20ml+Decadron 4mg) Narrative: Negative nerve stimulation @0.5MA. Blood Aspirated: No Pain Paresthesia on Injection Noted: No Resistance on Injection: Normal Image Stored and Saved: Yes Events: Uneventful and Well Tolerated
[2024-09-16] MEDS ORDERED: ROPIVACAINE 5 MG/ML 30 ML VIAL ONE (11:20)
[2024-09-16] MEDS ORDERED: KETOROLAC 15 MG/ML 1 ML VIAL ONE (11:20)
[2024-09-16] MEDS ORDERED: fentaNYL (PF) 50 MCG/ML 2 ML AMP ONE (11:20)
[2024-09-16] MEDS ORDERED: SUCCINYLCHOLINE CHLORIDE 200 MG/10 ML VIAL IV ONE (11:20)
[2024-09-16] MEDS ORDERED: PROPOFOL 10 MG/ML 20 ML VIAL IV ONE (11:20)
[2024-09-16] MEDS ORDERED: MIDAZOLAM 2 MG/2 ML VIAL ONE (11:20)
[2024-09-16] MEDS ORDERED: PHENYLEPHRINE 10 MG/ML VIAL ONE (11:20)
[2024-09-16] MEDS ORDERED: DEXAMETHASONE SOD PHOSPHATE 4 MG/ML 1 ML VIAL ONE (11:20)
[2024-09-16] MEDS ORDERED: LIDOCAINE 1% INJ 10MG/ML (20 ML MDV) ONE (11:20)
[2024-09-16 12:49] VITALS: TEMP 97.1
--- NOTE | 2024-09-16 12:54 | P.OP ---
Date of Procedure: 09/16/24 Preoperative Diagnosis: Left shoulder impingement Postoperative Diagnosis: 1. Left shoulder rotator cuff tear 2. Left shoulder impingement 3. Left shoulder acromioclavicular joint osteoarthritis 4. Left shoulder superficial labral tear 5. 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 Left shoulder arthroscopic rotator cuff repair 2. Left shoulder arthroscopic subacromial decompression 3. Left shoulder arthroscopic Milton procedure 4. Left shoulder arthroscopic debridement labral tear 5. Left shoulder arthroscopic chondroplasty humeral head Implants: 1Arthrex 4.75 swivel lock anchor Anesthesia: GETA, regional (Interscalene block) Surgeon: Nolan Martinez Carpet Binder #1: Ezra Forrester Estimated Blood Loss (ml): 9 Pathology: none sent Condition: stable Disposition: PACU Indications for Procedure: 64-year-old patient seen with progressive left shoulder pain. After having treatment options discussed, she elected to proceed with arthroscopy. Operative Findings: See description of procedure Description of Procedure: Patient underwent an interscalene block by department of anesthesia. The patient was then taken to the operative suite. The patient underwent a general anesthetic by the department of anesthesia. The patient was placed into a lateral position and secured. There was appropriate padding of the bony prominence. Left shoulder was then prepped and draped in normal sterile orthopedic fashion. We placed the extremity in 10 pounds of longitudinal traction. A posterior incision was now made for a posterior working portal site. The trocar and cannula were inserted into the glenohumeral joint. Arthroscopy was initiated. Spinal needle was now inserted anteriorly, to ascertain the anterior working portal site. An incision was now made in that area, a trocar was inserted followed by a probe. There were grade II/III chondromalacia changes of the humeral head with some small osteochondral flap tears present. There was some superficial tearing of the superior labrum. There were grade II chondromalacia changes glenoid fossa without tears. The long head biceps tendon was absent. I introduced a motorized shaver and I performed a chondroplasty of the humeral head followed by debriding out the superficial labral tear. The residual labrum was probed and was found to be stable. The residual osteochondral surface was stable. Instruments were now removed from the glenohumeral joint. Utilizing the posterior working portal site, the trocar and cannula were inserted into the subacromial space. Arthroscopy initiated. I made an incision 2 fingerbreadths lateral to the acromion. I introduced my trocar followed by my ArthroCare ablator. I now began ablating thick subacromial bursal tissue, which exposed the undersurface of the anterior acromion. There was diminished subacromial space. There was a prominent anterior acromion. A motorized bur was introduced and a subacromial decompression was performed. I also excised some osteophytes off the inferior aspect of the distal clavicle. The AC joint was visualized and noted to be fairly arthritic. The motorized bur was introduced in the anterior portal site and a Milton procedure was performed without difficulty removing 8 mm of bone off the distal clavicle, decompressing the AC joint nicely. I turned my attention to the rotator cuff. There was a 1 cm rotator cuff tear. I debrided the margins getting down to stable tendon tissue. The defect/tear measured approximately 1.5 cm and was freely mobile over the footprint. I abraded the footprint with a motorized bur. With the assistance of Pascual VALDEZ I now passed 2 everted mattress sutures through good bites of rotator cuff tendon. I punched a hole in the footprint area for insertion of an anchor. All 4 limbs of suture were passed through the eyelet of an Arthrex 4.75 swivel lock anchor. I placed the eyelet into the prepunched a hole and held in position while Pascual VALDEZ tension all 4 limbs of suture and deployed the anchor with good fixation noted. All residual suture limbs were now clipped. We had good compression of the tendon along the entire footprint. Instruments now removed from the portal sites. All portal sites were approximated with nylon suture. Sterile dressings were applied followed by a shoulder immobilizer. Ezra VALDEZ assisted in all aspects of this case. The patient was awakened, transferred to a bed, and taken to recovery in stable condition.
[2024-09-16] MEDS: LACTATED RINGERS 1,000 ML IV ONE (13:27)
[2024-09-16 14:00] VITALS: RESP 18
[2024-09-16 14:09] VITALS: BP 140/80; PULSE 69
== END 2024-09-16 14:45 | disposition home or self-care (01) ==
LOC: OR 09:25
PROVIDERS: ATTEND Orthopaedic Surgery
DX: M75.112 Incomplete rotator cuff tear or rupture of left shoulder, not specified as traumatic (principal); S43.432A Superior glenoid labrum lesion of left shoulder, initial encounter; M19.012 Primary osteoarthritis, left shoulder; M94.212 Chondromalacia, left shoulder; M75.42 Impingement syndrome of left shoulder; G89.18 Other acute postprocedural pain; E03.9 Hypothyroidism, unspecified; Z79.890 Hormone replacement therapy; Z79.899 Other long term (current) drug therapy; Z91.89 Other specified personal risk factors, not elsewhere classified; Z96.653 Presence of artificial knee joint, bilateral; Z96.642 Presence of left artificial hip joint; Z88.8 Allergy status to other drugs, medicaments and biological substances
CPT/HCPCS: 29827; 29826; 29824; 64415; C1713 ×2; J2250; J1100; J0690; J2405